=== PATIENT | female | born 1990 | race Caucasian/White ===

== ENCOUNTER 2016-07-17 15:46 | Emergency (ER) | payer SELFPAY ==
[2016-07-17 16:03] VITALS: BP 126/89
--- NOTE | 2016-07-17 16:14 | UC ---
Shoulder Pain HPI - History of Current Complaint Chief Complaint: UCUpperExtremity Stated Complaint: LEFT SHOULDER INJURY Time Seen by Provider: 07/17/16 16:05 Hx Obtained From: Patient Hx Last Menstrual Period: 06/14/16 ?: No Onset/Duration: Sudden Onset - at ~ 11 AM, Lasting Hours - 5 hours, Still Present Timing: Constant Severity Initially: Moderate Severity Currently: Moderate Location Of Pain: Is Discrete @ - cap of the left shouder, Radiates To - the shoulder blade Pain Intensity: 8 Pain Scale Used: 0-10 Numeric Character: Sharp, Burning Aggravating Factor(s): Movement, Lifting Related History: 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., 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 - Risk Factors Non-Orthopedic Risk Factor: Negative DVT Risk Factors: Negative Septic Arthritis Risk Factor: Negative - Allergies/Home Medications Allergies/Adverse Reactions: Allergies Allergy/AdvReac Type Severity Reaction Status Date / Time Hydromorphone [From Dilaudid] Allergy Intermediate Hives Verified 01/13/16 16:22 Latex Allergy Hives Verified 07/17/16 16:03 Home Medications: Home Medications Acetaminophen [Acetaminophen Extra Stren] 1,000 mg PO ONCE PRN 07/17/16 [ History Confirmed 07/17/16] PMH/Surg Hx/FS Hx/Imm Hx Endocrine History Of: Denies: Diabetes, Thyroid Disease Cardiovascular History Of: Reports: Cardiac Disorders - SVT Denies: Hypertension, Pacemaker/ICD Respiratory History Of: Denies: COPD, Asthma GI/ History Of: Reports: Gall Bladder Disease Denies: Ulcer Psychological History Of: Reports: Anxiety - WELL CONTROLLED, Depression - WELL CONTROLLED Other History Of: Negative For: Anticoagulant Therapy - Surgical History Surgical History: Yes Surgery Procedure, Year, and Place[place] [facility] [place] [facility] [place] - Family History Known Family History: Positive: Hypertension - Social History Occupation: Employed Full-time - [employer] Lives: With Family - with fiance Alcohol Use: None Substance Use Type: Cocaine, Other Substance Use Comment - Amount & 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 Smoking Status (MU): Light Every Day Tobacco Smoker Type: Cigarettes Amount Used/How Often: 3 cig/day Length of Time of Smoking/Using Tobacco: 6 MONTHS Have You Smoked in the Last Year: No When Did the Patient Quit Smoking/Using Tobacco: 2 yrs ago - Immunization History Most Recent Influenza Vaccination: 2014 Most Recent Tetanus Shot: UPDATED Most Recent Pneumonia Vaccination: NONE Review of Systems Musculoskeletal: Arthralgia All Other Systems Reviewed And Are Negative: Yes Physical Exam Triage Information Reviewed: Yes Appearance: Well-Appearing, Pain Distress - with movement, Obese Vital Signs: Initial Vital Signs Temp 98.3 F 07/17/16 15:56 Pulse 91 07/17/16 15:56 Resp 14 07/17/16 15:56 BP 126/89 07/17/16 15:56 Pulse Ox 99 07/17/16 15:56 Vital Signs Reviewed: Yes Eyes: Positive: Conjunctiva Clear Neck exam: Normal Neck: Positive: No Lymphadenopathy Respiratory: Positive: Lungs clear Cardiovascular: Positive: RRR, No Murmur Musculoskeletal: Positive: Strength Limited @ - left shoulder rotator cuff with significant pain., ROM Limited @ - left shoudler unable to raise shoulder without severe pain. Neurological: Positive: Other: - decrease sensation to pinprick for the whole left arm except on the medial aspect Psychological Exam: Normal Skin Exam: Normal Shoulder Course/Dx - Differential Dx/Diagnosis Differential Diagnosis/HQI/PQRI: Rotator Cuff Injury, Sprain, Strain Provider Diagnoses: rotator cuff strain. Neuritis Discharge - Discharge Plan Condition: Stable Disposition: HOME Prescriptions: Acetaminop/Codeine 30 MG TAB* [Tylenol/Codeine 30 MG TAB*] 1 tab PO Q6H PRN #14 tab MDD 4 PRN Reason: Pain - Moderate To Severe Gabapentin CAP(*) [Neurontin 300 CAP(*)] 300 mg PO TID #90 cap Patient Education Materials: Rotator Cuff Injury (ED), How to Use a Sling (GEN) , Gabapentin (By mouth), Acetaminophen/Codeine (By mouth) Forms: *Work Release Referrals: Jamil Hidalgo MD [Primary Care Provider] - Geni Sanabria MD [Medical Doctor] - 1 Day (for shoulder injury)
--- NOTE | 2016-07-17 16:31 | RAD ---
HISTORY: Pain, limited range of motion left shoulder COMPARISONS: July 16, 2009 VIEWS: 3, Frontal internal rotation, external rotation, and outlet views of the left shoulder FINDINGS: BONE DENSITY: Normal. BONES: There is no displaced fracture. JOINTS: There is no arthropathy. ALIGNMENT: There is no dislocation. SOFT TISSUES: Unremarkable. OTHER FINDINGS: None. IMPRESSION: NO ACUTE OSSEOUS INJURY. IF SYMPTOMS PERSIST, RECOMMEND REPEAT IMAGING.
== END 2016-07-17 17:14 | disposition home or self-care (01) ==
LOC: UCCORT 15:46
DX: S46.012A Strain of muscle(s) and tendon(s) of the rotator cuff of left shoulder, initial encounter (principal); X50.0XXA Overexertion from strenuous movement or load, initial encounter; Y92.9 Unspecified place or not applicable; M79.2 Neuralgia and neuritis, unspecified; F17.210 Nicotine dependence, cigarettes, uncomplicated; Z88.5 Allergy status to narcotic agent
CPT/HCPCS: 99213; G0463

== ENCOUNTER 2017-08-18 21:27 | Emergency (ER) | payer BC ==
--- OUTSIDE RECORDS SUMMARY | 2017-08-18 21:41 | XMS REPORT ---
:1990 External Reference #:[id number] Author Organization [facility] Address [address] [place] [address] Phone [phone] Care Team Providers Name Role Phone Jamil Hidalgo MD Care Team Information Passenger Brakeman Unavailable Jamil Hidalgo MD Primary Care Physician Unavailable Payers Type Date Identification Numbers Payment Provider Subscriber Commercial Policy Number: [id number] [facility] [employer] Akanksha Joseph PayID: [id number] [address] [address] [place] [address] Problems Date Description Provider Status Onset: 07/20/2017 Allergic rhinitis due to Ayla S. Fenstermacher, RPA-C Active animals Onset: 07/20/2017 Allergic rhinitis Ayla S. Fenstermacher, RPA-C Active Onset: 07/20/2017 Allergic rhinitis due to pollen Ayla S. Fenstermacher, RPA -C Active Onset: 07/20/2017 Uncomplicated moderate Ayla S. Fenstermacher, RPA-C Active persistent asthma Onset: 06/13/2017 Uncomplicated severe persistent Ayaan Hoang MD Active asthma Social History Type Date Description Comments Home Environment Has a window air conditioner Home Environment There is no basement Home Environment Uses a dehumidifier Home Environment There are draperies in the home Home Environment The floors are carpeted Home Environment The floors are tile Home Environment The floors are wood Home Environment Uses propane gas heating Smoke-Free Home is not smoke-free Smoke-Free Work is smoke-free Pets several cats Pets 2 dogs Smoking Patient is a current smoker, smokes every day Smoking 3-10 cigarettes daily Smoking Second Hand Smoke Exposure In The Home Allergies, Adverse Reactions, Alerts Date Description Reaction Status Severity Comments 06/13/2017 Aripiprazole active 06/13/2017 Hydromorphone active 07/20/2017 Latex active Medications Medication Date Status Form Strength Qnty SIG Indications Ordering Provider Levocetirizine 07/20 Active Tablets 5mg 30tab Take [facility] [place] Di[facility]ide /2017 s tablet Carlotta Hoang MD by mouth daily at bedtime Mometasone 07/20 Active Suspension 50mcg/Act 17uni [place] J30.1 [place] Furoate ts two Carlotta Hoang MD sprays in each nostril once daily. Breo Ellipta 06/13 Active Aerosol 200-25mcg 60uni inhale J45.50 [facility] /Inh ts one puff Carlotta Hoang MD once a day Spiriva Respimat 06/13 Active Aerosol 1.25mcg/A 4unit [address] every Carlotta Hoang MD Proair HFA 06/13 Active Aerosol 108(90Bas 8.500 2 puffs J45.50 e) gm every 4 Carlotta Hoang MD mcg/Act as needed Wellbutrin XL Active Tablets ER 300mg take one Unknown /0000 24HR tablet by mouth every morning Effexor XR Active Caps ER 75mg 1 tablet Unknown /0000 24HR by mouth three times daily please fill generic Hydroxyzine HCL Active Tablets 10mg 1 to 3 Unknown /0000 tabs every 6 hours as needed fot itching Trazodone HCL Active Tablets 50mg 1 tablet Unknown /0000 at bedtime as needed Prazosin HCL Active Capsules 2mg Unknown /0000 Biotin Maximum Active Tablets 68274mgd Unknown /0000 Dispers Vital Signs Date Vital Result Comment 07/20/2017 Height 65 inches 5'5" Weight 289.00 lb BMI (Body Mass Index) 48.1 kg/m2 Heart Rate 114 /min Body Temperature 97.5 F O2 % BldC Oximetry 97 % 06/13/2017 Height 65 inches 5'5" Weight 289.00 lb BMI (Body Mass Index) 48.1 kg/m2 Heart Rate 95 /min Respiratory Rate 22 /min Body Temperature 98.2 F O2 % BldC Oximetry 97 % Results Test Date Test Result H/L Range Note Order 06/14/2017 PFT Supplies <pending> Order 06/14/2017 Skin Test Seasonal and Environmental 59 Procedures Date CPT Code Description Status 06/14/2017 99760 Nitric Oxide Gas Determination Completed 06/14/2017 21407 Allergy Tests Percutaneous W/ Allergenic Extracts Completed 06/14/2017 77358 Allergy Tests Percutaneous W/ Allergenic Extracts Completed 06/14/2017 03600 Bronchodilation Responsiveness Spirometry Pre/Post Completed Bronchodil Adm Encounters Type Date Location Provider CPT E/M Dx Office Visit 07/20/2017 9:30a ROBERT Martinez 34408 J45.40 J30.1 J30.89 J30.81 Office Visit 06/13/2017 9:00[place] [address] J45.50 Plan of Care Future Appointment(s):01/18/2018 8:30 am - ROBERT García at [facility]/11/2018 - Ayla Dunne RPA-CJ45.40 Moderate persistent asthma, uncomplicatedComments:Asthma control has improved. Continue Breo 200/5 and Spiriva as prescribed. Continue Ventolin as needed for breakthrough coughing , wheezing and/or shortness of breath. Patient will continue to work on smoking cessation. Repeat PFT and NIOX prior to 6 month follow-up.Follow up:6 months - w /PFT and NIOX prior to qmifuV55.1 Allergic rhinitis due to pollenNew Medication: Levocetirizine Dihydrochloride 5 mgMometasone Furoate 50 mcg/ActComments: Patient with both seasonal and perennial allergic rhinitis. I have discussed environmental controls for house dust, dust mites, pets, mold spores and pollen. I will give Nasonex for daily prophylaxis of the nose. I will give Xyzal for breakthrough symptoms. I have discussed the potential risks, benefits and schedule requirements of immunotherapy and patient is going to consider this treatment option.She would like to discuss with her first and will contact the office if she decides to pursue allergy injections.Follow up:6 months.J30.89 Other allergic zylhuyznD44.81 Allergic rhinitis due to animal (cat ) (dog) hair and dander
--- OUTSIDE RECORDS SUMMARY | 2017-08-18 21:41 | XMS REPORT ---
:1990 External Reference #:[id number] Author Organization [facility] Address [address] [place] [address] Phone [phone] Care Team Providers Name Role Phone Jamil Hidalgo MD Care Team Information Frame Hand Unavailable Jamil Hidalgo MD Primary Care Physician Unavailable Payers Type Date Identification Numbers Payment Provider Subscriber Commercial Policy Number: [id number] [facility] [employer] Akanksha Joseph PayID: [id number] [address] [address] [place] [address] Problems Date Description Provider Status Onset: 06/13/2017 Uncomplicated severe persistent Ayaan Hoang [...] Form Strength Qnty SIG Indications Ordering Provider Breo Ellipta 06/13/ Active Aerosol 200-25mcg/ 60unit inhale J45.50 Ama[facility]oph[facility]ppa 2017 Inh s one puff Carlotta Hoang MD once a day Spiriva 06/13/ Active Aerosol 1.25mcg/Ac 4units 2 puffs J45.50 Ayaan Respimat 2017 t every day Carlotta Hoang MD Proair HFA 06/13/ Active Aerosol 108(90Base 8.500g 2 puffs J45.50 Ayaan 2016 ) mcg/Act m every 4 Carlotta Hoang MD as needed Wellbutrin XL / Active Tablets ER 300mg take one Unknown 0000 24HR tablet by mouth every morning Effexor XR / Active Caps ER 75mg 1 tablet Unknown 0000 24HR by mouth three times daily please fill generic Hydroxyzine / Active Tablets 10mg 1 to 3 Unknown HCL 0000 tabs every 6 hours as needed fot itching Trazodone HCL / Active Tablets 50mg 1 tablet Unknown 0000 at bedtime as needed Prazosin HCL / Active Capsules 2mg Unknown 0000 Biotin / Active Tablets 28656tgi Unknown Maximum 0000 Dispers Vital Signs Date Vital Result Comment [...] Procedures Date CPT Code Description Status 06/14/2017 20456 Nitric Oxide Gas Determination Completed 06/14/2017 74656 Allergy Tests Percutaneous W/ Allergenic Extracts Completed 06/14/2017 43916 Allergy Tests Percutaneous W/ Allergenic Extracts Completed 06/14/2017 66784 Bronchodilation Responsiveness Spirometry Pre/Post Completed Bronchodil Adm Encounters Type Date Location Provider CPT E/M Dx Office Visit 06/13/2017 9:00[place] [address] J45.50 Plan of Care 06/13/2017 - Ayaan Hoang MDJ45.50 Severe persistent asthma, uncomplicatedNew Medication:Breo Ellipta 200-25 mcg/InhSpiriva Respimat 1.25 mcg /ActProair HFA 108(90 Base) mcg/Act
[2017-08-18 21:53] VITALS: BP 127/81
[2017-08-18] MEDS ORDERED: Ketorolac INJ* 60 MG/2 ML VIAL IM ONE (21:57)
--- NOTE | 2017-08-18 22:03 | UC ---
Back Pain HPI - HPI Summary HPI Summary: Pt c/o sudden onset of right mid back pain after cough. Pt reports that she was seen and treated at [facility] on 08/15 and 08/17/17. On 08/17 visit, pt states that she had a CT scan of chest without any remarkable findings. Pt states that she was given a toradol shot at [facility] and pain in back improved. Pt is currently on prednisone as she was given prednisone from 08/15 visit.. to ER. - History of Current Complaint Chief Complaint: UCBackPain Stated Complaint: BACK PAIN Time Seen by Provider: 08/18/17 21:33 Hx Obtained From: Patient Hx Last Menstrual Period: 06/18/17 ?: No Onset/Duration: Sudden Onset, Lasting Days - 1 Timing: Constant Severity Initially: Moderate Severity Currently: Moderate Pain Intensity: 7 Back Pain: Is Discrete @ - right mid back Character: Sharp, Stiffness Aggravating Factor(s): Movement, Lifting, Bending Alleviating Factor(s): Other - toradol injection - Risk Factors AAA Risk Factors: Negative TAD Risk Factors: Negative Cauda Equina Risk Factors: Negative Epidural Abscess Risk Factors: Negative - Allergies/Home Medications Allergies/Adverse Reactions: Allergies Allergy/AdvReac Type Severity Reaction Status Date / Time aripiprazole [From Abili] Allergy Hives Verified 08/18/17 21:40 hydromorphone Allergy Hives Verified 08/18/17 21:34 latex Allergy Hives Verified 08/18/17 21:34 Home Medications: Home Medications Albuterol 2.5MG/3ML (0.083%)* [Ventolin 2.5 MG/3 ML NEB.MANISH*] 2.5 mg INH Q4H PRN 08/18/17 [History Confirmed 08/18/17] Albuterol HFA INHALER* [Ventolin HFA Inhaler*] 2 puff INH Q4H PRN 08/18/17 [ History Confirmed 08/18/17] Bupropion XL (NF) [Wellbutrin XL (NF)] 300 mg PO DAILY 08/18/17 [History Confirmed 08/18/17] Fluticasone/Vilanterol MDI(NF) [Breo Ellipta MDI 100/25(NF)] 1 puff INH DAILY [History Confirmed 08/18/17] Ibuprofen TAB* [Advil TAB*] 400 mg PO Q6H PRN 08/18/17 [History Confirmed ] Prazosin HCl 2 mg PO BEDTIME 08/18/17 [History Confirmed 08/18/17] Tiotropium CAP.INH* [Spiriva CAP.INH*] 2 cap INH DAILY 08/18/17 [History Confirmed 08/18/17] Venlafaxine EXT RELEASE CAP* [Effexor Xr CAP*] 75 mg PO DAILY 08/18/17 [History Confirmed 08/18/17] predniSONE TAB* [Deltasone TAB*] 50 mg PO DAILY 08/18/17 [History Confirmed 03/27] traZODone TAB* [Desyrel TAB*] 50 mg PO BEDTIME 08/18/17 [History Confirmed 08/18] PMH/Surg Hx/FS Hx/Imm Hx Previously Healthy: Yes Other History Of: Negative For: Anticoagulant Therapy - Surgical History Surgical History: Yes Surgery Procedure, Year, and Place: tonsillectomy 2010 [facility] [place]. right inguinal hernia repair 1995 [facility] [place]. ovarian cyst removal - Family History Known Family History: Positive: Hypertension - Social History Lives: With Family Alcohol Use: Rare Substance Use Type: Cocaine, Other Substance Use Comment - Amount & 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 Smoking Status (MU): Former Smoker Type: Cigarettes Amount Used/How Often: 3 cig/day Length of Time of Smoking/Using Tobacco: 6 MONTHS Have You Smoked in the Last Year: Yes When Did the Patient Quit Smoking/Using Tobacco: 4 DAYS AGO - Immunization History Most Recent Influenza Vaccination: 2014 Most Recent Tetanus Shot: UPDATED Most Recent Pneumonia Vaccination: NONE Review of Systems Constitutional: Negative Skin: Negative Eyes: Negative ENT: Negative Respiratory: Cough Cardiovascular: Negative Gastrointestinal: Negative Motor: Decreased ROM - right side upper back Neurovascular: Negative Musculoskeletal: Decreased ROM - back, Myalgia Neurological: Negative Psychological: Negative Is Patient Immunocompromised?: No All Other Systems Reviewed And Are Negative: Yes Physical Exam Triage Information Reviewed: Yes Appearance: Well-Appearing Vital Signs: Initial Vital Signs Temp 98.2 F 08/18/17 21:45 Pulse 93 08/18/17 21:45 Resp 20 08/18/17 21:45 BP 127/81 08/18/17 21:45 Pulse Ox 98 08/18/17 21:45 Vital Signs Reviewed: Yes Eye Exam: Normal ENT Exam: Normal Dental Exam: Normal Neck exam: Normal Respiratory Exam: Normal Cardiovascular Exam: Normal Musculoskeletal Exam: Other Musculoskeletal: Positive: Other: - tenderness, right mid bakc ~ ribs 7-10 Neurological Exam: Normal Psychological Exam: Normal Skin Exam: Normal Back Pain Course/Dx - Differential Dx/Diagnosis Differential Diagnosis/HQI/PQRI: Strain, Other - back pain Provider Diagnoses: right side back strain Discharge - Discharge Plan Condition: Stable Disposition: HOME Prescriptions: Benzonatate CAP* [Tessalon 100 MG CAP*] 100 mg PO Q8H PRN #21 cap PRN Reason: Cough Patient Education Materials: Muscle Strain (ED), Musculoskeletal Pain (ED) Referrals: Jamil Hidalgo MD [Primary Care Provider] - If Needed Additional Instructions: Please follow up with your PCP or return to clinic as needed.
== END 2017-08-18 22:13 | disposition home or self-care (01) ==
LOC: UCCORT 21:27
DX: S29.012A Strain of muscle and tendon of back wall of thorax, initial encounter (principal); X58.XXXA Exposure to other specified factors, initial encounter; Y93.9 Activity, unspecified; Y92.9 Unspecified place or not applicable
CPT/HCPCS: 96372; 99212; G0463; J1885

== ENCOUNTER 2018-12-30 14:21 | Emergency (ER) | payer BC, OTHER ==
[2018-12-30 15:36] VITALS: BP 141/85
--- NOTE | 2018-12-30 15:52 | UC ---
Knee Pain HPI - HPI Summary HPI Summary: Patient has a history of strain of her right hip which has been healing however she fell 2 times in the past 3 days the most recent was Monday night on to her left knee. She's had left knee pain since then however she is able to ambulate without difficulty. - History of Current Complaint Chief Complaint: UCLowerExtremity Stated Complaint: S/P FALL RIGHT LEG PAIN Time Seen by Provider: 12/30/18 15:47 Hx Obtained From: Patient Hx Last Menstrual Period: 11/29/18 ?: No - patient has not missed a period however she states she might be . Onset/Duration: Sudden Onset Severity Initially: Mild Severity Currently: Mild Location Of Injury: Left knee Pain Intensity: 3 Character: Dull, Aching Aggravating Factor(s): Weight Bearing, Prolonged Standing Alleviating Factor(s): Rest Associated Signs And Symptoms: Positive: Negative Able to Bear Weight: Yes - Allergies/Home Medications Allergies/Adverse Reactions: Allergies Allergy/AdvReac Type Severity Reaction Status Date / Time aripiprazole [From Abili] Allergy Hives Verified 12/30/18 15:25 hydromorphone Allergy Hives Verified 12/30/18 15:25 latex Allergy Hives Verified 12/30/18 15:25 Home Medications: Home Medications Bisoprolol TAB* [Zebeta TAB*] 2.5 mg PO BID 12/30/18 [History Confirmed 12/30/18 ] PMH/Surg Hx/FS Hx/Imm Hx Previously Healthy: Yes Other History Of: Negative For: Anticoagulant Therapy - Surgical History Surgical History: Yes Surgery Procedure, Year, and Place: tonsillectomy 2010 [facility] [place]. right inguinal hernia repair 1995 [facility] [place]. ovarian cyst removal. 2 cardiac ablations - Family History Known Family History: Positive: Hypertension - Social History Lives: With Family Alcohol Use: Weekly Substance Use Type: Cocaine, Other Substance Use Comment - Amount & 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 Smoking Status (MU): Former Smoker Type: Cigarettes Amount Used/How Often: 1/2 ppd/day Length of Time of Smoking/Using Tobacco: On and off for 10 yrs. Have You Smoked in the Last Year: Yes When Did the Patient Quit Smoking/Using Tobacco: 4 DAYS AGO - Immunization History Most Recent Influenza Vaccination: 2014 Most Recent Tetanus Shot: UPDATED Most Recent Pneumonia Vaccination: NONE Review of Systems All Other Systems Reviewed And Are Negative: Yes Skin: Negative: Bruising Motor: Positive: Negative Neurovascular: Positive: Negative Musculoskeletal: Positive: Negative, Other: - Very minimal pain to the lateral aspect of her left knee. No deformity is noted. Neurological: Positive: Negative Psychological: Positive: Negative Is Patient Immunocompromised?: No Physical Exam Triage Information Reviewed: Yes Appearance: Well-Appearing, No Pain Distress, Well-Nourished Vital Signs: Initial Vital Signs Temp 98.1 F 12/30/18 15:29 Pulse 93 12/30/18 15:29 Resp 20 12/30/18 15:29 BP 141/85 12/30/18 15:29 Pulse Ox 100 12/30/18 15:29 Vital Signs Reviewed: Yes Musculoskeletal Exam: Normal Musculoskeletal: Positive: Strength Intact, ROM Intact, Other: - Good peripheral pulses neuro sensation capillary refill, knee ligaments and patellar ligaments are intact, able to lift her leg without difficulty. No deformity, bruising, erythema or swelling is noted. Neurological Exam: Normal Neurological: Positive: Alert, Muscle Tone Normal Psychological Exam: Normal Skin Exam: Normal Knee Pain Course/Dx - Course Course Of Treatment: Knee x-ray:Report: Negative for joint effusion, fracture, or malalignment. Unremarkable soft tissue contours accounting for body habitus. IMPRESSION: #. Negative exam. - Differential Dx/Diagnosis Provider Diagnosis: Strain of left knee Discharge - Sign-Out/Discharge Documenting (check all that apply): Patient Departure All imaging exams completed and their final reports reviewed: Yes - Discharge Plan Condition: Fair Disposition: HOME Patient Education Materials: Knee Pain (ED) Referrals: No Primary Care Phys,NOPCP [Primary Care Provider] - Des Cid MD [Medical Doctor] - Additional Instructions: Apply heat to the sore area, take Motrin every 8 hours for pain. Follow-up with the primary care provider or orthopedist in 3 or 4 days if continued concerns. - Billing Disposition and Condition Condition: FAIR Disposition: Home
== END 2018-12-30 17:26 | disposition home or self-care (01) ==
LOC: UCCORT 14:21
DX: S83.92XA Sprain of unspecified site of left knee, initial encounter (principal); W19.XXXA Unspecified fall, initial encounter; Y92.9 Unspecified place or not applicable; Z87.891 Personal history of nicotine dependence
CPT/HCPCS: 84702; 99211; G0463

== ENCOUNTER 2019-02-09 19:25 | Emergency (ER) | payer OTHER ==
--- NOTE | 2019-02-09 19:48 | UC ---
Lower Extremity/Ankle HPI - HPI Summary HPI Summary: 28 yo female presents with LEFT ankle injury. She tells me that earlier today she was at home and inverted her left ankle. Since that time has had pain and swelling. She is ambulatory without assistance, but does have a mild limp. She took tylenol and iced the area with little relief. Denies numbness or tingling. She states that she has sprained this ankle numerous times in the past. - History of Current Complaint Stated Complaint: LEFT ANKLE INJURY Time Seen by Provider: 02/09/19 19:47 Hx Obtained From: Patient Hx Last Menstrual Period: 11/29/18 Onset/Duration: Sudden Onset Severity Initially: Moderate Severity Currently: Moderate Pain Intensity: 5 Pain Scale Used: 0-10 Numeric Aggravating Factor(s): Standing, Ambulation Alleviating Factor(s): Rest, Elevation Able to Bear Weight: Yes - Allergies/Home Medications Allergies/Adverse Reactions: Allergies Allergy/AdvReac Type Severity Reaction Status Date / Time aripiprazole [From Abilify] Allergy Hives Verified 12/30/18 15:25 hydromorphone Allergy Hives Verified 12/30/18 15:25 latex Allergy Hives Verified 12/30/18 15:25 metoprolol Allergy Hives Verified 02/09/19 19:51 PMH/Surg Hx/FS Hx/Imm Hx Respiratory History: Asthma Psychological History: Anxiety, Depression Other History Of: Negative For: Anticoagulant Therapy - Surgical History Surgical History: Yes Surgery Procedure, Year, and Place[place] [facility] [place] [facility] [place] ovarian cyst removal. 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 Smoking Status (MU): Former Smoker Type: Cigarettes Amount Used/How Often: 1/2 ppd/day Length of Time of Smoking/Using Tobacco: On and off for 10 yrs. Have You Smoked in the Last Year: Yes When Did the Patient Quit Smoking/Using Tobacco: 4 DAYS AGO - Immunization History Most Recent Influenza Vaccination: 2014 Most Recent Tetanus Shot: UPDATED Most Recent Pneumonia Vaccination: NONE Review of Systems All Other Systems Reviewed And Are Negative: Yes Constitutional: Positive: Negative Skin: Positive: Negative Respiratory: Positive: Negative Cardiovascular: Positive: Negative Musculoskeletal: Positive: Other: - Left ankle injury Neurological: Positive: Negative Psychological: Positive: Negative Physical Exam - Summary Physical Exam Summary: GENERAL: NAD. WDWN. No pain distress. SKIN: No rashes, sores, lesions, or open wounds. CHEST: No accessory muscle use. Breathing comfortably and in no distress. CV: Pulses intact PT and DP. Cap refill <2seconds MSK: Left ankle: Mild edema lateral malleolus with TTP here. TTP over ATFL. FROM , pain with inversion. Strength 5/5. Negative talar tilt. No increased laxity. NEURO: Alert. Sensations intact and symmetric B/L LEs PSYCH: Age appropriate behavior. Triage Information Reviewed: Yes Vital Signs: Vital Signs: Temp Pulse Resp BP Pulse Ox 98.9 F 112 18 138/70 99 02/09/19 19:44 02/09/19 19:44 02/09/19 19:44 02/09/19 19:44 02/09/19 19:44 Vital Signs Reviewed: Yes Lower Extremity Course/Dx - Course Course Of Treatment: XR ankle: wet read negative for fx. Suspect ankle sprain. Pt was placed in a CAM boot and provided with crutches for comfort. Advised to RICE and continue tylenol. F/u with Orthopedics if symptoms do not improve within 7 days. - Differential Dx/Diagnosis Provider Diagnosis: Left ankle sprain Discharge - Sign-Out/Discharge Documenting (check all that apply): Patient Departure All imaging exams completed and their final reports reviewed: No - Discharge Plan Condition: Stable Disposition: HOME Patient Education Materials: Ankle Sprain (ED) Referrals: No Primary Care Phys,NOPCP [Primary Care Provider] - Riaz Hernandez MD [Medical Doctor] - If Needed Additional Instructions: If you develop a fever, shortness of breath, chest pain, new or worsening symptoms - please call your PCP or go to the ED immediately. Your blood pressure was slightly elevated at todays visit. Please see your primary provider within 4 weeks for recheck and re-evaluation. 1) Your ankle X-ray appears normal tonight, but the radiologist will read this in the morning and we will call you with any changes. 2) Rest, Ice, and elevate your ankle to reduce pain and swelling 3) Use the crutches and walking boot as needed for comfort 4) If your symptoms do not improve within 7 days, please call Orthopedics at the number below to schedule an appointment for a recheck - Billing Disposition and Condition Condition: STABLE Disposition: Home
[2019-02-09 19:51] VITALS: BP 138/70
--- NOTE | 2019-02-10 10:01 | UC ---
- Progress Note Progress Note: Radiologist x-ray reading reviewed: FINDINGS: The soft tissues are grossly unremarkable. The bone mineralization is within normal limits. No acute fracture is identified. There is a small plantar calcaneal enthesophyte. The ankle mortise is congruent. Anatomic alignment is maintained. IMPRESSION: 1. No fracture or traumatic malalignment. 2. Small plantar calcaneal enthesophyte. No change in plan of care. Course/Dx - Diagnoses Provider Diagnoses: Left ankle sprain Discharge - Sign-Out/Discharge Documenting (check all that apply): Post-Discharge Follow Up All imaging exams completed and their final reports reviewed: Yes - Discharge Plan Condition: Stable Disposition: HOME Patient Education Materials: Ankle Sprain (ED) Referrals: Riaz Hernandez MD [Medical Doctor] - If Needed No Primary Care Phys,NOPCP [Primary Care Provider] - Additional Instructions: If you develop a fever, shortness of breath, chest pain, new or worsening symptoms - please call your PCP or go to the ED immediately. Your blood pressure was slightly elevated at todays visit. Please see your primary provider within 4 weeks for recheck and re-evaluation. 1) Your ankle X-ray appears normal tonight, but the radiologist will read this in the morning and we will call you with any changes. 2) Rest, Ice, and elevate your ankle to reduce pain and swelling 3) Use the crutches and walking boot as needed for comfort 4) If your symptoms do not improve within 7 days, please call Orthopedics at the number below to schedule an appointment for a recheck - Billing Disposition and Condition Condition: STABLE Disposition: Home
== END 2019-02-09 20:20 | disposition home or self-care (01) ==
LOC: UCCORT 19:25
DX: S93.402A Sprain of unspecified ligament of left ankle, initial encounter (principal); X50.0XXA Overexertion from strenuous movement or load, initial encounter; Y93.9 Activity, unspecified; Y92.009 Unspecified place in unspecified non-institutional (private) residence as the place of occurrence of the external cause; M77.9 Enthesopathy, unspecified; M77.32 Calcaneal spur, left foot; Z87.891 Personal history of nicotine dependence
CPT/HCPCS: 99213; G0463

== ENCOUNTER → 2019-04-25 | Day surgery (SDC) | payer BC, OTHER ==
[~2019-04-25] MED LIST: Acetaminophen TAB* 325 MG ONE; Acetaminophen TAB* 325 MG PO ONE; Acetaminophen TAB* 325 MG PO PRN; Buffered Lidocaine 1% SYRIN* 1 ML/SYRINGE INTRADERM ONE; Bupivacaine 0.25% SDV PF* 10 ML VIAL INJ ONE; Bupivacaine 0.25% W/EPI* 10 ML SDV ONE; Dexamethasone IV* 4 MG/ML 1 ML (4 MG) ONE; Dexmedetomidine* 200 MCG/2 ML 2 ML VIAL ONE; DiMENhydriNATE IV* 50 MG/ML VIAL IV PUSH PRN; Famotidine IV* 10 MG/ML 2 ML (20 mg) IV ONE; Famotidine IV* 10 MG/ML 2 ML (20 mg) ONE; Gabapentin CAP(*) 300 MG ONE; Gabapentin CAP(*) 300 MG PO ONE; Ketorolac INJ* 30 MG/ML 1 ML VIAL ONE; Lactated Ringers 1000 ML Bag* 1,000 ML IV SCH; Levalbuterol 0.63MG/3ML NEB* UNIT OF USE INH PRN; Lidocaine 2% PF * 5 ML VIAL ONE; Midazolam* 1 MG/ML 5 ML VIAL (5 MG) ONE; Naloxone* 0.4 MG/ML 1 ML VIAL IV PRN; Ondansetron INJ* 2 MG/ML VIAL ONE; PROCHLORPERAZINE INJ 5 MG/ML 2 ML VIAL IV PRN; Propofol* 10 MG/ML 20 ML BTL ONE; ceFAZolin 1 GM ADVAN(*) 1 GM ADDV.VIAL IVPB ONE; ceFAZolin 2 GM PREMIX in ORs 2 GM/50 ML BAG ONE; diPHENhydraMINE IV* 50 MG/ML 1 ml VIAL (BENADRYL) IV PRN; fentaNYL* 50 MCG/ML 2 ML VIAL (100 MCG VIAL) ONE
--- NOTE | 2019-04-25 09:42 | OP ---
Operative Report - Blank - Operative Report Date of Operation: 04/25/19 Note: PATIENT: Akanksha Joseph DATE OF : 1990 DATE OF SURGERY: 04/25/2019 SURGEON: Riaz Hernandez MD AIRPORT REFUELING HANDLER: SHELLI Anderson, whos assistance was necessary for positioning, retraction, help with instrumentation, and closure. ANESTHESIOLOGIST: Dr. Dixon PREOPERATIVE DIAGNOSIS: Left ankle peroneal tenosynovitis, peroneus brevis tear. POSTOPERATIVE DIAGNOSIS: Left ankle peroneal tenosynovitis, peroneus brevis tear and peroneal instability. OPERATION: 1. Left peroneus brevis tendon repair. 2. Left synovectomy of peroneal tendon sheath. 3. Left peroneal tendon stabilization procedure with fibular groove deepening osteotomy. ANESTHESIA: General IMPLANTS: Arthrex fibertak suture anchor x2 TOURNIQUET TIME: Less than 1 hour with a well-padded calf tourniquet at 250mmHg SPECIMENS: none ESTIMATED BLOOD LOSS: minimal COMPLICATIONS: none STATUS: Stable from the operating room to the recovery room and then home. INDICATIONS FOR PROCEDURE: Akanksha has had persistent lateral ankle pain and swelling after an injury. Both operative and non operative treatment alternatives were reviewed. Further, the nature and risks of surgery were reviewed in careful detail, in the office as well as the pre-operative holding area. Our discussions regarding the risks of surgery included, but were not limited to, infection, wound problems, nerve injury, neuroma, RSD, persistent symptoms, blood clot, failure of the surgery, recurrent problems and even the remote chance of catastrophic complication. DESCRIPTION OF PROCEDURE: The patient was seen in the preoperative holding unit and informed written consent was obtained. The appropriate extremity was marked. The patient was then brought to the operating room and carefully positioned on the operating room table. Anesthesia was induced. All bony prominences were padded with great care. A chlorhexidine based pre-scrub was performed followed by a chloraprep prep and drape in standard sterile fashion. A surgical safety pause was then conducted in which we confirmed the appropriate patient, extremity, planned procedure, availability of equipment, indication and administration of prophylactic antibiotics, and DVT prophylaxis in the form of a compression boot on the non-surgical extremity. I began with placement of a sterile calf tourniquet 3 finger-breadths distal to the fibular neck. An Esmarch exsanguination of the limb was then performed and the tourniquet inflated. I utilized an incision overlying the peroneal tendons laterally. I carried the dissection down through the soft tissue to the level of the periosteum and superior peroneal retinaculum (SPR) with care taken to protect the sural nerve, which was not visualized during the procedure. I carefully incised the SPR off of the posterior fibula to expose the peroneal tendons. Dissection of the tendons was carried distally. There was a large amount of inflamed tenosynovium within the tendon sheath. An extensive synovectomy was performed. Additionally, there was a low-lying peroneus brevis muscle belly which was debrided and excised. The tendons were explored at this time for any tears. There was a longitudinal split tear of the peroneus brevis at the level of the retrofibular groove. I removed a small slip of loose frayed tendon in this area, leaving approximately 95% of the tendon intact. I then utilized a 3-0 Ethibond suture to repair the tendon tear. At this point, I carefully inspected the peroneal groove at the posterior aspect of the fibula. This was an abnormally shallow groove and I therefore elected to perform a groove deepening osteotomy procedure. I utilized a small sagittal saw to create a longitudinal osteotomy in the fibula at the margin of the insertion of the SPR. I then utilized a bone tamp and a mallet to impact this area, deepening the groove. I took care to ensure that there were no sharp bony prominences in this area. At this point I carefully planned out the repair of the superior peroneal retinaculum. I then reduced the tendons and they sat nicely in the deepened retro-fibular groove. The wound was copiously irrigated. I repaired the SPR utilizing two Arthrex fibertak suture anchors and then #1 Vicryl suture.. I utilized multiple sutures for this repair, appropriately tensioning the SPR. I was able to pass a Callahan under the repaired SPR without difficulty after the repair. We then irrigated the wound copiously again. The wound was closed in a layered fashion utilizing 3-0 Monocryl and 3-0 nylon. A sterile dressing was then applied and the ankle was splinted in a neutral position. All needle and sponge counts were correct at the end of the case. The patient was awakened from anesthesia and transferred to the recovery room in stable condition. There were no complications. ATTESTATION: I attest I was present and scrubbed and performed the critical portions of the procedure myself. POST-OPERATIVE PLAN: The patient will remain [id number] for an anticipated duration of 6 weeks. Follow up will be in 2 weeks for likely suture removal and transition into a short leg cast. We will use Xarelto for DVT prophylaxis.
[2019-04-25] MEDS: fentaNYL* 50 MCG/ML 2 ML VIAL (100 MCG VIAL) IV PRN ×2 (10:14→10:27)
[2019-04-25 10:32] VITALS: BP 152/82
== END | disposition home or self-care (01) ==
LOC: OR 05:32
PROVIDERS: ATTEND Orthopaedic Surgery
DX: S86.312A Strain of muscle(s) and tendon(s) of peroneal muscle group at lower leg level, left leg, initial encounter (principal); M65.872 Other synovitis and tenosynovitis, left ankle and foot; M67.874 Other specified disorders of tendon, left ankle and foot; F17.210 Nicotine dependence, cigarettes, uncomplicated; J45.909 Unspecified asthma, uncomplicated; Z68.42 Body mass index [BMI] 45.0-49.9, adult; F31.9 Bipolar disorder, unspecified; F41.8 Other specified anxiety disorders; I47.1 Supraventricular tachycardia; X58.XXXA Exposure to other specified factors, initial encounter; Y92.9 Unspecified place or not applicable
CPT/HCPCS: 81025; A9270-GY; C1713; J0690; J1100; J1885; J2250; J2405; J2704; J3010; J3490

== ENCOUNTER 2019-06-11 08:32 | Emergency (ER) | payer BC ==
[2019-06-11 09:25] VITALS: BP 145/90
--- NOTE | 2019-06-11 09:52 | UC ---
Head Injury HPI - HPI Summary HPI Summary: head injury x 3 hrs ago slipped at her bathroom and fell on her head no LOC, + headaches, nausea , no vomiting, + lightheaded photophobia, no memory loss, + fatigue - History Of Current Complaint Chief Complaint: UCHeadInjury Stated Complaint: S/P FALL HEAD SHOULDER INJURY Time Seen by Provider: 06/11/19 09:37 Hx Obtained From: Patient Hx Last Menstrual Period: 06/10/19 ?: No Onset/Duration: Sudden Onset, Lasting Hours - 3, Still Present Severity Currently: Moderate Severity Initially: Moderate Pain Intensity: 6 Character: Dull Aggravating Factor(s): Other - walking, movements Alleviating Factor(s): Other - rest Associated Signs And Symptoms: Positive: Negative, Nausea. Negative: LOC (Time In Secs./Mins/Hrs), LOC Duration Unknown, Confusion, Memory Loss, Seizure, Epistaxis, Dental Malocclusion, Neck Pain, Vomiting - Allergies/Home Medications Allergies/Adverse Reactions: Allergies Allergy/AdvReac Type Severity Reaction Status Date / Time aripiprazole [From Abilify] Allergy Severe Hives Verified 06/11/19 09:25 hydromorphone Allergy Severe Hives Verified 06/11/19 09:25 latex Allergy Severe Hives Verified 06/11/19 09:25 metoprolol Allergy Severe Hives Verified 06/11/19 09:25 Iodinated Contrast Media AdvReac Severe Vomiting Verified 06/11/19 09:25 PMH/Surg Hx/FS Hx/Imm Hx Respiratory History: Asthma Other History Of: Negative For: Anticoagulant Therapy - Surgical History Surgical History: Yes Surgery Procedure, Year, and Place[place] [facility] [place] [facility] [place]. 2 cardiac ablations- 2016, -2017. 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 Smoking Status (MU): Former Smoker Type: Cigarettes Amount Used/How Often: 1/2 ppd/day Length of Time of Smoking/Using Tobacco: On and off for 10 yrs. Have You Smoked in the Last Year: Yes When Did the Patient Quit Smoking/Using Tobacco: 12/2018 - Immunization History Most Recent Influenza Vaccination: 2014 Most Recent Tetanus Shot: UPDATED Most Recent Pneumonia Vaccination: NONE Review of Systems All Other Systems Reviewed And Are Negative: Yes Constitutional: Positive: Negative Skin: Positive: Negative Eyes: Positive: Negative ENT: Positive: Negative Respiratory: Positive: Negative Motor: Positive: Negative Neurovascular: Positive: Negative Musculoskeletal: Positive: Other: - left shoulder pain Neurological: Positive: Headache, Weakness. Negative: Numbness Is Patient Immunocompromised?: No Physical Exam Triage Information Reviewed: Yes Appearance: Well-Appearing, No Pain Distress, Well-Nourished Vital Signs: Initial Vital Signs Temp 98.5 F 06/11/19 09:22 Pulse 89 06/11/19 09:22 Resp 20 06/11/19 09:22 BP 145/90 06/11/19 09:22 Pulse Ox 100 06/11/19 09:22 Vital Signs Reviewed: Yes Eye Exam: Normal Eyes: Positive: Conjunctiva Clear ENT: Positive: Normal ENT inspection, Hearing grossly normal, Pharynx normal Dental Exam: Normal Neck exam: Normal Neck: Positive: Supple, Nontender, No Lymphadenopathy Respiratory: Positive: Chest non-tender, Lungs clear, Normal breath sounds Cardiovascular: Positive: RRR, No Murmur, Pulses Normal Abdominal Exam: Normal Abdomen Description: Positive: Nontender, Soft Musculoskeletal: Positive: Strength Intact, Other: - mild left shoulder pain, no tenderness, good ROM Neurological Exam: Normal Skin Exam: Normal UC Physical Exam Vital Signs On Initial Exam: Initial Vitals Temp Pulse Resp BP Pulse Ox 98.5 F 89 20 145/90 100 06/11/19 09:22 06/11/19 09:22 06/11/19 09:22 06/11/19 09:22 06/11/19 09:22 - Neurological Exam Neurological: Normal, Sensory/Motor Intact, CN Intact II-III, Normal Gait, Speech Normal Head Injury Course/Dx - Differential Dx/Diagnosis Provider Diagnosis: Concussion Discharge ED - Sign-Out/Discharge Documenting (check all that apply): Patient Departure All imaging exams completed and their final reports reviewed: No Studies - Discharge Plan Condition: Stable Disposition: HOME Patient Education Materials: Concussion (ED) Forms: *Work Release Referrals: No Primary Care Phys,NOPCP [Primary Care Provider] - 7 Days - Billing Disposition and Condition Condition: STABLE Disposition: Home
--- OUTSIDE RECORDS SUMMARY | 2019-06-11 16:40 | XMS REPORT | Continuity of Care Document ---
:1990 External Reference #:[id number] Author Name Riaz Hernandez MD (transmitted by agent of provider Bhavani Manriquez) Address [address] [place] [address] Care Team Providers Name Role Phone Patient's Choice Care Team Information Janitorial Services Supervisor Unavailable Problems Active Problems Provider Date Sprain of distal tibiofibular ligament Riaz Hernandez MD Onset: 02/19/2019 Peroneal tendinitis, left leg Riaz Hernandez MD Onset: 02/19/2019 Strain of peroneal tendon Riaz Hernandez MD Onset: 04/15/2019 Social History Type Date Description Comments Sex Unknown Tobacco Use Start: Unknown Light tobacco smoker (10 or fewer cigarettes/day) Smoking Status Reviewed: 04/15/19 Light tobacco smoker (10 or fewer cigarettes/day) ETOH Use Denies alcohol use Tobacco Use Start: Unknown Light tobacco smoker (10 or fewer cigarettes/day) Recreational Drug Use Denies Drug Use but has history of abuse-clean for 3 years Exercise Type/Frequency Does not exercise Allergies, Adverse Reactions, Alerts Active Allergies Reaction Severity Comments Date Dilaudid Hives 07/21/2016 Latex Hives 07/21/2016 Medications Active Medications SIG Qnty Indications Ordering Provider Date Wellbutrin XL 1 by mouth every Unknown 300mg Tablets day ER 24HR Medications Administered in Office Medication SIG Qnty Indications Ordering Provider Date Depomedrol 40MG Daniele Hoyos MD 07/21/2016 Injection Immunizations Description No Information Available Vital Signs Date Vital Result Comment 04/15/2019 8:01am Height 65 inches 5'5" Weight 293.00 lb Heart Rate 59 /min Body Temperature 99.3 F Pain Level 8 O2 % BldC Oximetry 86 % BMI (Body Mass Index) 48.8 kg/m2 04/05/2019 2:59pm Height 65 inches 5'5" Weight 293.00 lb BP Systolic 136 mmHg BP Diastolic 88 mmHg Body Temperature 98.7 F BMI (Body Mass Index) 48.8 kg/m2 Results Description No Information Available Procedures Description No Information Available Medical Devices Description No Information Available Encounters Type Date Location Provider Dx Diagnosis [facility] musc/tend 8:15a at [facility] peroneal grp at low leg lev, left leg, init Office Visit 04/05/2019 [facility] Riaz Hernandez, M25.572 Pain in left 3:00p at [facility] ankle and joints of left foot M25.472 Effusion, left ankle S93.432A Sprain of tibiofibular ligament of left ankle, init encntr M76.72 Peroneal tendinitis, left leg Office Visit 03/08/2019 [facility] Hernandez, S93.432A Sprain of 10:45a [facility] at [facility] [place] ligament of left ankle, init encntr Office Visit 02/19/2019 [place] Riaz Hernandez, S93.432A Sprain of 2:45p [facility] at [facility] [place] ligament of left ankle, init encntr M76.72 Peroneal tendinitis, left leg Assessments Date Code Description Provider 04/15/2019 S86.312A Strain of muscle(s) and tendon(s) of abielal Riaz Hernandez MD muscle group at lower leg level, left leg, initial encounter 04/05/2019 M25.572 Pain in left ankle and joints of left foot Riaz Hernandez MD 04/05/2019 M25.472 Effusion, left ankle Riaz Hernandez MD 04/05/2019 S93.432A Sprain of tibiofibular ligament of left ankle, Raiz Hernandez MD initial encounter 04/05/2019 M76.72 Peroneal tendinitis, left leg Riaz Hernandez MD 03/08/2019 S93.432A Sprain of tibiofibular ligament of left ankle, Riaz Hernandez MD initial encounter 02/19/2019 S93.432A Sprain of tibiofibular ligament of left ankle, Riaz Hernandez MD initial encounter 02/19/2019 M76.72 Peroneal tendinitis, left leg Riaz Hernandez MD Plan of Treatment Future Appointment(s):04/25/2019 10:00 am - ROBERT Anderson at [place] at [id number]/25/2019 10:00 am - Riaz Hernandez MD at [facility] at [id number]/15/2019 - Riaz Hernandez [id number] Strain of muscle(s) and tendon(s) of peroneal muscle group at lower leg level, left leg, initial encounterFollow up:Follow Up: 13-15 days postop Functional Status Description No Information Available Mental Status Description No Information Available Referrals Description No Information Available
--- OUTSIDE RECORDS SUMMARY | 2019-06-11 16:40 | XMS REPORT | Continuity of Care Document ---
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] Medications SIG Qnty Indications Ordering Provider Date Knee Scooter use for S86.312A Riaz Hernandez MD 04/30/2019 non-weightbearing ht: 65" wt: 293 Tramadol HCL 1 tablets every 18tabs Riaz Hernandez MD 04/26/2019 50mg 4-6 hours as Tablets needed Oxycodone HCL 1 tabs by mouth 10tabs Riaz Hernandez MD 04/25/2019 5mg every 6 hours as Tablets needed Xarelto take one tab per 30tabs Riaz Hernandez MD 04/25/2019 10mg Tablets day Wellbutrin XL 1 by mouth every Unknown 300mg day Tablets ER 24HR Medications Administered in Office Medication SIG Qnty Indications Ordering Provider Date Depomedrol 40MG Daniele Hoyos MD 07/21/2016 Injection Immunizations Description No Information Available Vital Signs Date Vital Result Comment 04/30/2019 1:51pm Height 65 inches 5'5" Weight 293.00 lb Heart Rate 78 /min BP Systolic 132 mmHg BP Diastolic 86 mmHg Respiratory Rate 18 /min Body Temperature 99.3 F Pain Level 8 BMI (Body Mass Index) 48.8 kg/m2 04/15/2019 8:01am Height 65 inches 5'5" Weight 293.00 lb Heart Rate 59 /min Body Temperature 99.3 F Pain Level 8 O2 % BldC Oximetry 86 % BMI (Body Mass Index) 48.8 kg/m2 Results Description No Information Available Procedures Date Code Description Status 04/30/2019 56431 Short Leg Cast Completed 04/25/2019 51223 Synovectomy Flexor Tendon Foot Completed 04/25/2019 55505 Synovectomy Flexor Tendon Foot Completed 04/25/2019 59192 Repair Dislocating Peroneal Tendon W/Fibular Osteotomy Completed 04/25/2019 50314 Repair Dislocating Peroneal Tendon W/Fibular Osteotomy Completed 04/25/2019 79625 Repair Flexor Tendon Leg Primary W/O Graft Completed 04/25/2019 47864 Repair Flexor Tendon Leg Primary W/O Graft Completed Medical Devices Description No Information Available Encounters Type Date Location Provider Dx Diagnosis Office Visit 04/15/2019 [facility] Riaz Hernandez, S86.312A Strain musc/tend 8:15a at [facility] peroneal grp at low leg lev, left leg, init [facility] M25.572 Pain in left 3:00p at [facility] ankle and joints of left foot M25.472 Effusion, left ankle S93.432A Sprain of tibiofibular ligament of left ankle, init encntr M76.72 Peroneal tendinitis, left leg Office Visit 03/08/2019 [place] Riaz Hernandez, S93.432A Sprain of 10:45a [facility] at tib[facility]fibular [place] ligament of left ankle, init encntr Office Visit 02/19/2019 [place] Riaz Hernandez, S93.432A Sprain of 2:45p [facility] at [facility] [place] ligament of left ankle, init encntr M76.72 Peroneal tendinitis, left leg Assessments Date Code Description Provider 04/30/2019 S86.312A Strain of muscle(s) and tendon(s) of keri Hernandez MD muscle group at lower leg level, left leg, initial encounter 04/30/2019 M65.872 Other synovitis and tenosynovitis, left ankle Riaz Hernandez MD and foot 04/30/2019 M25.372 Other instability, left ankle Riaz Hernandez MD 04/25/2019 S86.312A Strain of muscle(s) and tendon(s) of peroneal Bhavani Manriquez RPA-Josefa muscle group at lower leg level, left leg, initial encounter 04/25/2019 S86.312A Strain of muscle(s) and tendon(s) of keri Hernandez MD muscle group at lower leg level, left leg, initial encounter 04/25/2019 M65.872 Other synovitis and tenosynovitis, left ankle Bhavani Manriquez RPA-C and foot 04/25/2019 M65.872 Other synovitis and tenosynovitis, left ankle Riaz Hernandez MD and foot 04/25/2019 M25.372 Other instability, left ankle Bhavani Manriquez RPA-C 04/25/2019 M25.372 Other instability, left ankle Riaz Hernandez MD 04/15/2019 S86.312A Strain of muscle(s) and tendon(s) of keri Hernandez MD muscle group at lower leg level, left leg, initial encounter 04/05/2019 M25.572 Pain in left ankle and joints of left foot Riaz Hernandez MD 04/05/2019 M25.472 Effusion, left ankle Riaz Hernandez MD 04/05/2019 S93.432A Sprain of tibiofibular ligament of left Riaz Hernandez MD ankle, initial encounter 04/05/2019 M76.72 Peroneal tendinitis, left leg Riaz Hernandez MD 03/08/2019 S93.432A Sprain of tibiofibular ligament of left Riaz Hernandez MD ankle, initial encounter 02/19/2019 S93.432A Sprain of tibiofibular ligament of left Riaz Hernandez MD ankle, initial encounter 02/19/2019 M76.72 Peroneal tendinitis, left leg Riaz Hernandez MD Plan of Treatment Future Appointment(s):05/10/2019 8:30 am - Riaz Hernandez MD at [facility] at Dsmivn0204/30/2019 - Riaz Hernandez, MDS86.312A Strain of muscle(s) and tendon(s) of peroneal muscle group at lower leg level, left leg, initial encounterNew Medication:Knee Scooter - use for non-weightbearing ht: 65" wt: 293Follow up:Follow Up: as scheduled for postop datdzS20.872 Other synovitis and tenosynovitis, left ankle and footM25.372 Other instability, left ankle Functional Status Description No Information Available Mental Status Description No Information Available Referrals Description No Information Available
--- OUTSIDE RECORDS SUMMARY | 2019-06-11 16:40 | XMS REPORT | Continuity of Care Document ---
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 Onset: 05/17/2019 Joint derangement Riaz Hernandez MD Onset: 04/25/2019 Other synovitis and tenosynovitis, left ankle Riaz Hernandez MD Onset: 2018 and foot Social History Type Date Description Comments Sex Unknown Tobacco Use Start: Unknown Light tobacco smoker (10 or fewer cigarettes/day) Smoking Status Reviewed: 05/20/19 Light tobacco smoker (10 or fewer cigarettes/day) [...] Available Vital Signs Date Vital Result Comment 05/20/2019 3:12pm Height 65 inches 5'5" Weight 293.00 lb Heart Rate 78 /min BP Systolic 120 mmHg BP Diastolic 82 mmHg Respiratory Rate 17 /min Body Temperature 100.4 F Pain Level 8 BMI (Body Mass Index) 48.8 kg/m2 05/10/2019 8:06am Height 65 inches 5'5" Weight 293.00 lb Heart Rate 88 /min BP Systolic 142 mmHg BP Diastolic 86 mmHg Respiratory Rate 18 /min Body Temperature 99.6 F Pain Level 9 BMI (Body Mass Index) 48.8 kg/m2 Results Description No Information Available Procedures Date Code Description Status 05/10/2019 32039 Short Leg Cast Completed 04/30/2019 56776 Short Leg Cast Completed 04/25/2019 84899 Synovectomy Flexor Tendon Foot Completed 04/25/2019 65512 Synovectomy Flexor Tendon Foot Completed 04/25/2019 24762 Repair Dislocating Peroneal Tendon W/Fibular Osteotomy Completed 04/25/2019 90686 Repair Dislocating Peroneal Tendon W/Fibular Osteotomy Completed 04/25/2019 51713 Repair Flexor Tendon Leg Primary W/O Graft Completed 04/25/2019 34787 Repair Flexor Tendon Leg Primary W/O Graft Completed Medical Devices Description No Information Available Encounters Type Date Location Provider Dx Diagnosis Office Visit 04/15/2019 [facility] Riaz Hernandez, S86.312A Strain musc/tend 8:15a at [facility] peroneal grp at low leg lev, left leg, init [facility] Visit [facility] M25.572 Pain in left 3:00p at [facility] ankle and joints of left foot M25.472 Effusion, left ankle S93.432A Sprain of tibiofibular ligament of left ankle, init encntr M76.72 Peroneal tendinitis, left leg Office Visit 03/08/2019 [facility], S93.432A Sprain of 10:45a [facility] at tibiofibular [place] ligament of left ankle, init encntr Office Visit 02/19/2019 [facility] Hernandez, S93.432A Sprain of 2:45p [facility] at [facility] [place] ligament of left ankle, init encntr M76.72 Peroneal tendinitis, left leg Assessments Date Code Description Provider 05/17/2019 Z47.89 Encounter for other orthopedic aftercare Geni Sanabria M.D. 05/17/2019 M25.572 Pain in left ankle and joints of left foot Geni Sanabria M.D. 05/17/2019 R60.0 Localized edema Geni Sanabria M.D. 05/10/2019 S86.312A Strain of muscle(s) and tendon(s) of peroneal Riaz Hernandez MD muscle group at lower leg level, left leg, initial encounter 05/10/2019 M65.872 Other synovitis and tenosynovitis, left ankle Riaz Hernandez MD and foot 05/10/2019 M25.372 Other instability, left ankle Riaz Hernandez MD 04/30/2019 S86.312A Strain of muscle(s) and tendon(s) of keri Hernandez MD muscle group at lower leg level, left leg, initial encounter 04/30/2019 M65.872 Other synovitis and tenosynovitis, left ankle Riaz Hernandez MD and foot 04/30/2019 M25.372 Other instability, left ankle Riaz Hernandez MD 04/25/2019 S86.312A Strain of muscle(s) and tendon(s) of peroneal ROBERT Anderson muscle group at lower leg level, left leg, initial encounter 04/25/2019 S86.312A Strain of muscle(s) and tendon(s) of keri Hernandez MD muscle group at lower leg level, left leg, initial encounter 04/25/2019 M65.872 Other synovitis and tenosynovitis, left ankle ROBERT Anderson and foot 04/25/2019 M65.872 Other synovitis and tenosynovitis, left ankle Riaz Hernandez MD and foot 04/25/2019 M25.372 Other instability, left ankle Bhavani ROBERT Manriquez 04/25/2019 M25.372 Other instability, left ankle Riaz Hernandez MD 04/15/2019 S86.312A Strain of muscle(s) and tendon(s) of peroneal Riaz Hernandez MD muscle group at lower [...] Riaz Hernandez MD Plan of Treatment Future Appointment(s):06/14/2019 8:00 am - Riaz Hernandez MD at [facility] Functional Status Description No Information Available Mental Status Description No Information Available Referrals Description No Information Available
--- OUTSIDE RECORDS SUMMARY | 2019-06-11 16:40 | XMS REPORT | Continuity of Care Document ---
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 Problems Active Problems Provider Date Sprain [...] (10 or fewer cigarettes/day) Smoking Status Reviewed: 05/10/19 Light tobacco smoker (10 or fewer cigarettes/day) [...] Available Vital Signs Date Vital Result Comment 05/10/2019 8:06am Height 65 inches 5'5" Weight 293.00 lb Heart Rate 88 /min BP Systolic 142 mmHg BP Diastolic 86 mmHg Respiratory Rate 18 /min Body Temperature 99.6 F Pain Level 9 BMI (Body Mass Index) 48.8 kg/m2 04/30/2019 1:51pm Height 65 inches 5'5" Weight 293.00 lb Heart Rate 78 /min BP Systolic 132 mmHg BP Diastolic 86 mmHg Respiratory Rate 18 /min Body Temperature 99.3 F Pain Level 8 BMI (Body Mass Index) 48.8 kg/m2 Results Description No Information Available Procedures Date Code Description Status 05/10/2019 80158 Short Leg Cast Completed 04/30/2019 77292 Short Leg Cast Completed 04/25/2019 66599 Synovectomy Flexor Tendon Foot Completed 04/25/2019 72267 Synovectomy Flexor Tendon Foot Completed 04/25/2019 13349 Repair Dislocating Peroneal Tendon W/Fibular Osteotomy Completed 04/25/2019 40071 Repair Dislocating Peroneal Tendon W/Fibular Osteotomy Completed 04/25/2019 48211 Repair Flexor Tendon Leg Primary W/O Graft Completed 04/25/2019 72584 Repair Flexor Tendon Leg Primary W/O Graft Completed Medical Devices Description No Information Available Encounters Type Date Location Provider Dx Diagnosis Office Visit 04/15/2019 [facility] Riaz Hernandez, S86.312A Strain musc/tend 8:15a at [facility] peroneal grp at low leg lev, left leg, init Office Visit 04/05/2019 [facility] Riaz Hernandez, M25.572 Pain in left 3:00p at [facility] ankle and joints of left foot M25.472 Effusion, left ankle S93.432A Sprain of tibiofibular ligament of left ankle, init encntr M76.72 Peroneal tendinitis, left leg Office Visit 03/08/2019 [facility], S93.432A Sprain of 10:45a [facility] at tibiofibular [place] ligament of left ankle, init encntr Office Visit 02/19/2019 [facility] Hernandez, S93.432A Sprain of 2:45p [facility] at tibiofibular [place] ligament of left ankle, init encntr M76.72 Peroneal tendinitis, left leg Assessments Date Code Description Provider 05/10/2019 S86.312A Strain of muscle(s) and tendon(s) [...] S86.312A Strain of muscle(s) and tendon(s) of jackelineoneal ROBERT Anderson muscle group at lower leg [...] foot 04/25/2019 M25.372 Other instability, left ankle ROBERT Anderson 04/25/2019 M25.372 Other instability, left ankle Riaz [...] Hernandez MD Plan of Treatment Future Appointment(s):06/14/2019 3:15 pm - Riaz Hernandez MD at [facility] at Okfppm7705/10/2019 - KILLIAN Billings86.312A Strain of muscle(s) and tendon(s) of peroneal muscle group at lower leg level, left leg, initial encounterFollow up:Follow Up: 4 ceeyaL56.872 Other synovitis and tenosynovitis , left ankle and footM25.372 Other instability, left ankle Functional Status Description No Information Available Mental Status Description No Information Available Referrals Description No Information Available
--- OUTSIDE RECORDS SUMMARY | 2019-06-11 16:40 | XMS REPORT | Continuity of Care Document ---
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 Problems Active Problems Provider Date Strain of peroneal tendon Riaz Hernandez MD Onset: 04/15/2019 Peroneal tendinitis, left leg Riaz Hernandez MD Onset: 02/19/2019 Sprain of distal tibiofibular ligament Riaz Hernandez MD Onset: 02/19/2019 Social History Type Date Description Comments Sex [...] Date Location Provider Dx Diagnosis Office Visit 03/08/2019 [facility] Riaz Hernandez, S93.432A Sprain of 10:45a at [place] tibiofibular ligament of left ankle, init encntr Office Visit 02/19/2019 [facility] Riaz Hernandez S93.432A Sprain of 2:45p at [place] tibiofibular ligament of left ankle, init encntr M76.72 Peroneal tendinitis, left leg Assessments Date Code Description Provider 04/15/2019 S86.312A Strain of muscle(s) and tendon(s) of peroneal Riaz Hernandez MD muscle group at lower leg level, left leg, initial encounter 04/05/2019 S93.432A Sprain of tibiofibular ligament of left ankle, Riaz Hernandez MD initial encounter 04/05/2019 M76.72 Peroneal tendinitis, left leg Riaz Hernandez MD 03/08/2019 S93.432A Sprain of tibiofibular ligament of left ankle, Riaz Hernandez MD initial encounter 02/19/2019 S93.432A Sprain of tibiofibular ligament of left ankle, Riaz Hernandez MD initial encounter 02/19/2019 M76.72 Peroneal tendinitis, left leg Riaz Hernandez MD Plan of Treatment 04/15/2019 - Riaz Hernandez MDS86.312A Strain of muscle(s) and tendon(s) of peroneal muscle group at lower leg level, left leg, initial encounterFollow up: Follow Up: deciding on surgery Functional Status Description No Information Available Mental Status Description No Information Available Referrals Description No Information Available
--- OUTSIDE RECORDS SUMMARY | 2019-06-11 16:40 | XMS REPORT | Continuity of Care Document ---
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 Problems Active Problems Provider Date Sprain [...] Location Provider Dx Diagnosis [facility] musc/tend 8:15a at [facility] peroneal grp at low leg lev, left leg, init Office Visit 04/05/2019 [facility] Riaz Hernandez, M25.572 Pain in left 3:00p at [facility] ankle and joints of left foot M25.472 Effusion, left ankle S93.432A Sprain of tibiofibular ligament of left ankle, init encntr M76.72 Peroneal tendinitis, left leg Office Visit 03/08/2019 [facility], S93.432A Sprain of 10:45a [facility] at tibiofibular [place] ligament of left ankle, init encntr Office Visit 02/19/2019 [facility] Riaz Hernandez, S93.432A Sprain of 2:45p [facility] at tibiofibular [place] ligament of left ankle, init encntr M76.72 [...] Appointment(s):04/25/2019 10:00 am - ROBERT Anderson at [facility] at Lajvqk5704/25/2019 10:00 am - Riaz Hernandez MD at [facility] at Fdjvyg4404/15/2019 - Riaz Hernandez MDS86.312A Strain of muscle(s) and tendon(s) of peroneal muscle group at lower leg level, left leg, initial encounterFollow up:Follow Up: 13-15 days postop Functional Status Description No Information Available Mental Status Description No Information Available Referrals Description No Information Available
== END 2019-06-11 09:53 | disposition home or self-care (01) ==
LOC: UCCORT 08:32
DX: S06.0X0A Concussion without loss of consciousness, initial encounter (principal); M25.512 Pain in left shoulder; J45.909 Unspecified asthma, uncomplicated; Z87.891 Personal history of nicotine dependence; Z91.040 Latex allergy status; Z88.5 Allergy status to narcotic agent; Z88.8 Allergy status to other drugs, medicaments and biological substances; Z91.041 Radiographic dye allergy status; W01.198A Fall on same level from slipping, tripping and stumbling with subsequent striking against other object, initial encounter; Y92.89 Other specified places as the place of occurrence of the external cause
CPT/HCPCS: 99211; G0463

== ENCOUNTER 2019-06-19 16:51 | Emergency (ER) | payer BC ==
--- OUTSIDE RECORDS SUMMARY | 2019-06-19 17:14 | XMS REPORT | Continuity of Care Document ---
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 Tobacco Use Start: Unknown End: Patient is a former Unknown smoker Smoking Status Reviewed: 06/19/19 Patient is a former smoker Exercise Type/Frequency Does not exercise Allergies, Adverse Reactions, Alerts Active Allergies Reaction Severity Comments Date Dilaudid Hives 07/21/2016 Latex Hives 07/21/2016 Abilify 06/19/2019 Metoprolol 06/19/2019 Medications Active Medications SIG Qnty Indications Ordering Provider Date Knee Scooter use for S86.312A Riaz Hernandez MD 04/30/2019 non-weightbeari ng ht: 65" wt: 293 Xarelto take one tab 30tabs Riaz Hernandez MD 04/25/2019 10mg Tablets per day Wellbutrin XL 1 by mouth Unknown 300mg every day Tablets ER 24HR History Medications Tramadol HCL 1 tablets every 18taannette Hernandez MD 04/26/2019 - 50mg 4-6 hours as 06/18/2019 Tablets needed Oxycodone HCL 1 tabs by mouth 10taannette Hernandez MD 04/25/2019 - 5mg every 6 hours as 06/18/2019 Tablets needed Medications Administered in Office Medication SIG Qnty Indications Ordering Provider Date Depomedrol 40MG Daniele Hoyos MD 07/21/2016 Injection Immunizations Description No Information Available Vital Signs Date Vital Result Comment 06/19/2019 3:33pm Height 60 inches 5'0" Weight 290.00 lb Heart Rate 66 /min BP Systolic 130 mmHg BP Diastolic 96 mmHg Respiratory Rate 14 /min Body Temperature 98.4 F Pain Level 0 BMI (Body Mass Index) 56.6 kg/m2 05/20/2019 3:12pm Height 65 inches 5'5" Weight 293.00 lb Heart Rate 78 /min BP Systolic 120 mmHg BP Diastolic 82 mmHg Respiratory Rate 17 /min Body Temperature 100.4 F Pain Level 8 BMI (Body Mass Index) 48.8 kg/m2 Results Description No Information Available Procedures Date Code Description Status 05/20/2019 46227 Short Leg Cast Completed 05/10/2019 12821 Short Leg Cast Completed 04/30/2019 66686 Short Leg Cast Completed 04/25/2019 45812 Synovectomy Flexor Tendon Foot Completed 04/25/2019 91912 Synovectomy Flexor Tendon Foot Completed 04/25/2019 42142 Repair Dislocating Peroneal Tendon W/Fibular Osteotomy Completed 04/25/2019 41897 Repair Dislocating Peroneal Tendon W/Fibular Osteotomy Completed 04/25/2019 82857 Repair Flexor Tendon Leg Primary W/O Graft Completed 04/25/2019 84391 Repair Flexor Tendon Leg Primary W/O Graft Completed Medical Devices Description No Information Available Encounters Type Date Location Provider Dx Diagnosis Office Visit 04/15/2019 [place] Amirah Hernandez, S86.312A Strain musc/tend 8:15a at [place] peroneal grp at low leg lev, left leg, init Office Visit 04/05/2019 [place] Amirah Hernandez, M25.572 Pain in left 3:00p at [facility] ankle and joints of left foot M25.472 Effusion, left ankle S93.432A Sprain of tibiofibular ligament of left ankle, init encntr M76.72 Peroneal tendinitis, left leg Office Visit 03/08/2019 [facility] Riaz Hernandez, S93.432A Sprain of 10:45a [facility] at tibiofibular [place] ligament of left ankle, init encntr Office Visit 02/19/2019 [facility] Hernandez, S93.432A Sprain of 2:45p [facility] at tibiofibular [place] ligament of left ankle, init encntr M76.72 Peroneal tendinitis, left leg Assessments Date Code Description Provider 06/19/2019 S86.312A Strain of muscle(s) and tendon(s) of keri Hernandez MD muscle group at lower leg level, left leg, initial encounter 05/20/2019 S86.312A Strain of muscle(s) and tendon(s) of keri Hernandez MD muscle group at lower leg level, left leg, initial encounter 05/20/2019 M65.872 Other synovitis and tenosynovitis, left ankle Riaz Hernandez MD and foot 05/20/2019 M25.372 Other instability, left ankle Riaz Hernandez MD 05/17/2019 Z47.89 Encounter for other orthopedic aftercare Geni Sanabria M.D. 05/17/2019 M25.572 Pain in left ankle and joints of left foot Geni Sanabria M.D. 05/17/2019 R60.0 Localized edema Geni Sanabria M.D. 05/17/2019 M79.662 Pain in left lower leg Geni Sanabria M.D. 05/10/2019 S86.312A Strain of [...] ankle Riaz Hernandez MD and foot 04/25/2019 S86.312A Strain of muscle(s) and tendon(s) of peroneal Bhavani Manriquez RPA-C muscle group at lower leg level, left leg, initial encounter 04/25/2019 S86.312A Strain of muscle(s) and tendon(s) of keri Hernandez MD muscle group at lower leg level, left leg, initial encounter 04/25/2019 M65.872 Other synovitis and tenosynovitis, left ankle Bhavani Mitra, RPA-C and foot 04/25/2019 M65.872 Other synovitis [...] Riaz Hernandez MD Plan of Treatment Future Appointment(s):07/19/2019 8:00 am - Riaz Hernandez MD at [facility] at Dpsyuv2606/19/2019 - Riaz Hernandez, MDS86.312A Strain of muscle(s) and tendon(s) of peroneal muscle group at lower leg level, left leg, initial encounterNew Therapy:Physical TherapyFollow up:Follow Up: 4 weeks Functional Status Description No Information Available Mental Status Description No Information Available Referrals Description No Information Available
[2019-06-19] MEDS ORDERED: NS 0.9% 1000 ML** 1,000 ML IV ONE (17:44)
[2019-06-19] MEDS ORDERED: Ondansetron INJ* 2 MG/ML VIAL IV ONE (17:45)
--- NOTE | 2019-06-19 17:58 | ED ---
Syncope/Near Syncope - HPI Summary HPI Summary: 29 year old female presents with syncope today. She states she is has had 4 episodes of syncope in the past week. She states continues to her head every time she passes out. She was diagnosed with a concussion. States she was using the bathroom today when she got tunnel vision and ended up passing out. States she's had episodes of nausea vomiting. She does have a history of migraines. Has history of SVT and has a loop recorder. She is not on any medications currently. She denies any diarrhea. No bowel pain. She denies any chest pain or shortness of breath. States she feels dizzy right now. She admits to photophobia. Denies any neck pain. No other injury. - History Of Current Complaint Chief Complaint: EDHeadInjury Time Seen by Provider: 06/19/19 17:32 - Allergies/Home Medications Allergies/Adverse Reactions: Allergies Allergy/AdvReac Type Severity Reaction Status Date / Time aripiprazole [From Abilify] Allergy Severe Hives Verified 06/19/19 16:56 hydromorphone Allergy Severe Hives Verified 06/19/19 16:56 latex Allergy Severe Hives Verified 06/19/19 16:56 metoprolol Allergy Severe Hives Verified 06/19/19 16:56 Iodinated Contrast Media AdvReac Severe Vomiting Verified 06/19/19 16:56 PMH/Surg Hx/FS Hx/Imm Hx Endocrine/Hematology History: Reports: Hx Anemia - HX OF Denies: Hx Anticoagulant Therapy, Hx Diabetes, Hx Thyroid Disease Cardiovascular History: Reports: Other Cardiovascular Problems/Disorders - SVT Denies: Hx Hypertension, Hx Pacemaker/ICD Respiratory History: Reports: Hx Asthma Denies: Hx Chronic Obstructive Pulmonary Disease (COPD) GI History: Reports: Hx Gall Bladder Disease, Hx Gastroesophageal Reflux Disease , Hx Hiatal Hernia Denies: Hx Ulcer History: Denies: Hx Renal Disease Musculoskeletal History: Reports: Hx Tendonitis - left ankle Denies: Hx Rheumatoid Arthritis, Hx Osteoporosis, Hx Scoliosis Sensory History: Denies: Hx Contacts or Glasses, Hx Hearing Aid Opthamlomology History: Denies: Hx Contacts or Glasses Neurological History: Reports: Hx Headaches, Hx Migraine Denies: Other Neuro Impairments/Disorders Psychiatric History: Reports: Hx Anxiety, Hx Depression, Hx Panic Disorder - ANXIETY - Cancer History Hx Chemotherapy: No - Surgical History Surgery Procedure, Year, and Place[place] [facility] [place] [facility] [place] ovarian cyst removal. 2 cardiac ablations- 2017, -2017. LOOP RECORDER 12/2017-REVEAL LINQ-PATIENT WILL BRING CARD TO SCAN INTO FILE Hx Anesthesia Reactions: Yes - after ovarian cyst removal BP dropped, T&A and cyst removal= anxious - Immunization History Date of Tetanus Vaccine: utd Date of Influenza Vaccine: none Infectious Disease History: No Infectious Disease History: Denies: Hx Clostridium Difficile, Hx Hepatitis, Hx Human Immunodeficiency Virus (HIV), Hx of Known/Suspected MRSA, Hx Shingles, Hx Tuberculosis, Hx Known/ Suspected VRE, Hx Known/Suspected VRSA, History Other Infectious Disease, Traveled Outside the [place] in Last 30 Days - Family History Known Family History: Positive: Hypertension - Social History Alcohol Use: Occasionally Substance Use Type: Reports: Cocaine, Other Substance Use Comment - Amount & 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 Smoking Status (MU): Former Smoker Type: Cigarettes Amount Used/How Often: 1/2 ppd/day Length of Time of Smoking/Using Tobacco: On and off for 10 yrs. Have You Smoked in the Last Year: Yes Review of Systems Negative: Fever Negative: Chest Pain Negative: Shortness Of Breath Positive: Vomiting, Nausea Positive: Headache All Other Systems Reviewed And Are Negative: Yes Physical Exam Triage Information Reviewed: Yes Vital Signs On Initial Exam: Initial Vitals Temp Pulse Resp BP Pulse Ox 99.1 F 105 18 126/96 98 06/19/19 16:53 06/19/19 16:53 06/19/19 16:53 06/19/19 16:53 06/19/19 16:53 Vital Signs Reviewed: Yes Appearance: Positive: Well-Appearing Skin: Positive: Warm, Dry Head/Face: Positive: Normal Head/Face Inspection Eyes: Positive: Normal, EOMI, RACHEL, Conjunctiva Clear ENT: Positive: Normal ENT inspection, Pharynx normal, TMs normal Respiratory/Lung Sounds: Positive: Clear to Auscultation, Breath Sounds Present Cardiovascular: Positive: Normal, RRR Abdomen Description: Positive: Nontender, Soft Bowel Sounds: Positive: Present Neurological: Positive: Sensory/Motor Intact, Alert, Oriented to Person Place, Time, CN Intact II-III, Finger to Nose Psychiatric: Positive: Normal Procedures - Sedation Patient Received Moderate/Deep Sedation with Procedure: No Diagnostics - Vital Signs Vital Signs Temp Pulse Resp BP Pulse Ox 06/19/19 16:53 99.1 F 105 18 126/96 98 - Laboratory Result Diagrams: 06/19/19 17:59 06/19/19 17:59 Lab Statement: Any lab studies that have been ordered have been reviewed, and results considered in the medical decision making process. - CT brain CT Interpretation Completed By: Radiologist Summary of CT Findings: IMPRESSION: No acute intracranial abnormality. - EKG No standard instances Cardiac Rate: NL EKG Rhythm: Sinus Rhythm EKG Comparison: No Significant Change Summary of EKG Findings: sinus rhythm Re-Evaluation - Re-Evaluation First Eval Re-Evaluation Time: 19:51 Change: Unchanged Comment: still naueous Second Eval Re-Evaluation Time: 20:25 Change: Improved Comment: states is itchy now Third Eval Re-Evaluation Time: 20:59 Change: Improved Comment: itchiness is gone, feels better Course/Dx Course Of Treatment: 29 year old female presents with syncope today. She states she is has had 4 episodes of syncope in the past week. She states continues to her head every time she passes out. She was diagnosed with a concussion. States she was using the bathroom today when she got tunnel vision and ended up passing out. States she's had episodes of nausea vomiting. She does have a history of migraines. Has history of SVT and has a loop recorder. She is not on any medications currently. She denies any diarrhea. No bowel pain. She denies any chest pain or shortness of breath. States she feels dizzy right now. She admits to photophobia. Denies any neck pain. No other injury. On exam of the normal neuro exam. CT of brain normal. lab work wnl. Gave fluids from the Benadryl and Reglan and feeling better. patient becomes significantly tachycardic upon standing so likely has postional tachycardic syndrome. will have follow up with primary and cardiology. gave concussion precautions. told to increase fluid intake. patient understand and agrees with plan. - Diagnoses Differential Diagnosis/HQI/PQRI: Positive: Hypovolemia, Metabolic Reaction, Vasovagal Episode Provider Diagnoses: Concussion, Syncope Discharge ED - Sign-Out/Discharge Documenting (check all that apply): Patient Departure - Discharge Plan Condition: Stable Disposition: HOME Prescriptions: Ondansetron ODT TAB* [Zofran 4 MG Odt TAB*] 4 mg PO Q6H PRN #20 tab.odt PRN Reason: Nausea Patient Education Materials: Syncope (ED), Concussion (ED) Forms: *Work Release Referrals: Jamil Hidalgo MD [Primary Care Provider] - Additional Instructions: Place ice on area as needed Take Tylenol or ibuprofen for headache every 6 hours take zofran every 6 hours for nausea drink plenty of fluids Modify activities as tolerated follow up with cardiology stand up slowly Follow up with primary within 5 days Return to ED if develop any new or worsening symptoms - Billing Disposition and Condition Condition: STABLE Disposition: Home
[2019-06-19 18:06] LABS: ABS Basophils 0.1 10^3/ul (0-0.2); ABS Eosinophils 0.1 10^3/ul (0-0.6); ABS Lymphocytes 1.9 10^3/ul (1.0-4.8); ABS Monocytes 0.5 10^3/ul (0-0.8); ABS Neutrophils 6.8 10^3/ul (1.5-7.7); Eosinophil % 0.9 %; Hematocrit 41 % (35-47); Hemoglobin 13.9 g/dL (12.0-16.0); Lymphocyte % 20.1 %; Mean Corpuscular HGB Conc 34 g/dL (31-36); Mean Corpuscular Hemoglobin 31 pg (27-31); Mean Corpuscular Volume 91 fL (80-97); Mean Platelet Volume 7.6 fL (7.4-10.4); Platelet Count 312 10^3/uL (150-450); Red Blood Count 4.46 10^6 /uL (3.70-4.87); Red Cell Distribution Width 13 % (10-15); White Blood Count 9.3 10^3/uL (3.5-10.8)
[2019-06-19 18:23] LABS: Albumin 3.9 g/dL (3.2-5.2); Albumin/Globulin Ratio 1.1 (1-3); BUN/Creatinine Ratio 11.7 (8-20); EGFR Non-African American 89.3 (>60); Globulin 3.6 g/dL (2-4); Magnesium 1.7 mg/dL (1.9-2.7); Potassium 4.1 mmol/L (3.5-5.0); Total Bilirubin 0.4 mg/dL (0.2-1.0); Total Protein 7.5 g/dL (6.4-8.9)
[2019-06-19 18:50] LABS: TSH (Thyroid Stimulating Horm) 1.88 mcIU/mL (0.34-5.60)
[2019-06-19] MEDS ORDERED: diPHENhydraMINE IV* 50 MG/ML 1 ml VIAL (BENADRYL) SLOW PUSH ONE (19:33)
[2019-06-19] MEDS ORDERED: PROCHLORPERAZINE INJ 5 MG/ML 2 ML VIAL IV ONE (19:33)
[2019-06-19] MEDS ORDERED: Ketorolac INJ* 30 MG/ML 1 ML VIAL IV PUSH ONE (19:45)
[2019-06-19] MEDS ORDERED: O ndansetron ODT 4MG 5TAB PRPK 4 MG PAK PO ONE (21:00)
[2019-06-19 21:18] VITALS: BP 92/47
== END 2019-06-19 21:14 | disposition home or self-care (01) ==
LOC: ED 16:51
DX: S06.0X9A Concussion with loss of consciousness of unspecified duration, initial encounter (principal); R55 Syncope and collapse; Z87.891 Personal history of nicotine dependence; R51 Headache; I47.1 Supraventricular tachycardia; K21.9 Gastro-esophageal reflux disease without esophagitis; R11.2 Nausea with vomiting, unspecified; X58.XXXA Exposure to other specified factors, initial encounter; Y92.9 Unspecified place or not applicable; Z95.818 Presence of other cardiac implants and grafts
CPT/HCPCS: 36415; 70450; 80053; 83605; 83735; 84443; 84484; 85025; 93005; 96361; 96374; 96375; 99283; A9270-GY; J0780; J1200; J1885; J2405

== ENCOUNTER 2019-08-25 07:40 | Emergency (ER) | payer BC ==
--- OUTSIDE RECORDS SUMMARY | 2019-08-25 07:53 | XMS REPORT | Continuity of Care Document ---
:1990 External Reference #:[id number] Author Name Mercedes Boone, FELISHA, HEAD CONTROL CLERK Address [address] [place] [address] Problems Active Problems Provider Date Paroxysmal supraventricular tachycardia Susy Luis ANP Onset: 2015 Social History Type Date Description Comments Sex Unknown Tobacco Use Start: Unknown End: Quit Unknown Smoking Status Reviewed: 07/16/19 Quit ETOH Use Occasionally consumes alcohol Tobacco Use Start: Unknown End: Patient is a former smoker Unknown Recreational Drug Use Denies Drug Use Allergies, Adverse Reactions, Alerts Active Allergies Reaction Severity Comments Date Latex 05/11/2016 Hydromorphone 05/11/2016 Abilify 11/23/2017 Metoprolol Urticaria 03/01/2018 Medications Active Medications SIG Qnty Indications Ordering Provider Date Flecainide Acetate 1 by mouth twice 180tabs I47.1 Mercedes Boone 07/16/2019 a day FELISHA Blakely, 100mg Tablets HEAD CONTROL CLERK Diltiazem HCL ER 1 by mouth every 90caps I47.1 Mercedes Boone 07/16/2019 Coated Beads day FELISHA Blakely, 180mg Caps HEAD CONTROL CLERK ER 24HR Bupropion HCL ER (XL) 1 by mouth every Unknown day 300mg Tablets ER 24HR Ativan 1 tablet by Unknown 0.5mg Tablets mouth every 8 hours prn anxiety Promethazine HCL Take One Tablet Unknown 25mg By Mouth Every 6 Tablets Hours as Needed For Nausea/Vomiting History Medications Cartia XT 1 by mouth 30caps I47.1 Mercedes Boone 06/26/2019 - 120mg Caps every day FELISHA Blakely, HEAD CONTROL CLERK 07/16/2019 ER 24HR Flecainide Acetate 1 by mouth 60tabs I47.1 Mercedes Boone 06/26/2019 - twice a day FELISHA Blakely, HEAD CONTROL CLERK 07/16/2019 50mg Tablets Immunizations Description No Information Available Vital Signs Date Vital Result Comment 08/19/2019 7:51am BP Systolic Sitting Left Arm 138 mmHg BP Diastolic Sitting Left Arm 80 mmHg Respiratory Rate 18 /min Height 65 inches 5'5" Weight 298.00 lb BMI (Body Mass Index) 49.6 kg/m2 BSA (Body Surface Area) 2.34 m2 [place] body weight in kilograms 57 kg 07/16/2019 7:45am BP Systolic Sitting Left Arm 128 mmHg BP Diastolic Sitting Left Arm 86 mmHg Heart Rate 96 /min Respiratory Rate 16 /min Height 65 inches 5'5" Weight 304.00 lb BMI (Body Mass Index) 50.6 kg/m2 BSA (Body Surface Area) 2.36 m2 [place] body weight in kilograms 57 kg O2 % BldC Oximetry 98 % ra Results Test Acquired Date Facility Test Result H/L Range Note Nocturnal Oximetry 08/06/2019 [facility] Low Oximetry 87 % Low 93-98 [address] [place] [address] [phone] Fio2 21 Normal 21-100 Heart Rate 85 BPM Duration Of Study 495 MINUTES Total Time Below 88% 0.1 MINUTES Continuous Oximetry 08/05/2019 [facility] Oximetry 97 % Normal 93-98 [address] [place] [address] [phone] Fio2 21 Normal 21-100 Heart Rate 123 BPM Patient Status RESTING 1 I47.1 SUPRAVENTRICULAR TACHYCARDIA R06.02SOB Procedures Date Code Description Status 08/19/2019 88494 EKG-Tracing And Report Completed 07/05/2019 85808 Echocardiogram Complete Completed 06/26/2019 19920 EKG-Tracing And Report Completed 05/01/2019 81911 Implantable [employer] Heart Rhythm Derived Completed Data Medical Devices Description No Information Available Encounters Type Date Location Provider Dx Diagnosis Office Visit 08/19/2019 Cardiology Office Mercedes Boone I47.1 Supraventricular 7:40a FELISHA Blakely, tachycardia HEAD CONTROL CLERK R55 Syncope and collapse Z95.9 Presence of cardiac and vascular implant and graft, unsp Office Visit 07/16/2019 Cardiology Mercedes Boone I47.1 Supraventricular 7:40a Office Zora, MSN, tachycardia HEAD CONTROL CLERK R55 Syncope and collapse Z95.9 Presence of cardiac and vascular implant and graft, [facility] Office Visit 06/26/2019 7:40a Cardiology Office BooneLua R55 Syncope and [place], MSN, collapse HEAD CONTROL CLERK I47.1 Supraventricular tachycardia Z95.9 Presence of cardiac and vascular implant and graft, [facility] Assessments Date Code Description Provider 08/19/2019 I47.1 Supraventricular tachycardia Boone, Mercedes Blakely, MSN, HEAD CONTROL CLERK 08/19/2019 R55 Syncope and collapse Boone, Mercedes Blakely, MSN, HEAD CONTROL CLERK 08/19/2019 Z95.9 Presence of cardiac and vascular Boone, Mercedes Blakely MSN, implant and graft, unspecified HEAD CONTROL CLERK 07/16/2019 I47.1 Supraventricular tachycardia Boone, Mercedes Blakely MSN, HEAD CONTROL CLERK 07/16/2019 R55 Syncope and collapse Boone, Mercedes Blakely MSN, HEAD CONTROL CLERK 07/16/2019 Z95.9 Presence of cardiac and vascular Boone, Mercedes Blakely, MSN, implant and graft, unspecified HEAD CONTROL CLERK 07/05/2019 R55 Syncope and collapse Miri Hoang MD 07/05/2019 I47.1 Supraventricular tachycardia Miri Hoang MD 06/26/2019 R55 Syncope and collapse Boone, Mercedes Blakely, MSN, HEAD CONTROL CLERK 06/26/2019 I47.1 Paroxysmal supraventricular Boone, Mercedes Blakely MSN, tachycardia HEAD CONTROL CLERK 06/26/2019 Z95.9 Presence of cardiac and vascular Boone, FELISHA Magdaleno, implant and graft, unspecified HEAD CONTROL CLERK 05/01/2019 R55 Syncope and collapse Miri Hoang MD 05/01/2019 R55 Syncope and collapse TTM Check 05/01/2019 Z95.9 Presence of cardiac and vascular Miri Hoang MD implant and graft, unspecified 05/01/2019 Z95.9 Presence of cardiac and vascular TTM Check implant and graft, unspecified 05/01/2019 R42 Dizziness and giddiness Miri Hoang MD 05/01/2019 R42 Dizziness and giddiness TTM Check Plan of Treatment Future Appointment(s):02/18/2020 7:40 am - Mercedes Boone, MSN, HEAD CONTROL CLERK at [facility]/19/2019 - Mercedes Boone, FELISHA, FNPI47.1 Supraventricular tachycardiaComments:No changes. Monitor.R55 Syncope and collapseComments:Monitor.Z95.9 Presence of cardiac and vascular implant and graft, unspecifiedAllFollow up:Follow up visit in six months. Functional Status Description No Information Available Mental Status Description No Information Available Referrals Description No Information Available
--- OUTSIDE RECORDS SUMMARY | 2019-08-25 07:53 | XMS REPORT | Continuity of Care Document ---
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 Onset: 05/17/2019 Social History Type Date Description Comments Sex Unknown Tobacco Use Start: Unknown Light tobacco smoker (10 or fewer cigarettes/day) ETOH Use Denies alcohol use Recreational Drug Use Denies Drug Use but has history of abuse-clean for 3 years Tobacco Use Start: Unknown End: Patient is a former Unknown smoker Smoking Status Reviewed: 07/19/19 Patient is a former smoker Exercise Type/Frequency [...] Unknown 300mg every day Tablets ER 24HR Diltiazem HCL 1 by mouth Unknown 120mg every day Tablets Flecainide Acetate 1 by mouth Unknown 50mg twice a day Tablets History Medications Tramadol HCL 1 tablets every [...] Available Vital Signs Date Vital Result Comment 07/19/2019 8:01am Height 60 inches 5'0" Heart Rate 110 /min BP Systolic 112 mmHg BP Diastolic 60 mmHg Respiratory Rate 20 /min Body Temperature 98.9 F Pain Level 4 06/19/2019 3:33pm Height 60 inches 5'0" Weight 290.00 lb Heart Rate 66 /min BP Systolic 130 mmHg BP Diastolic 96 mmHg Respiratory Rate 14 /min Body Temperature 98.4 F Pain Level 0 BMI (Body Mass Index) 56.6 kg/m2 Results Description No Information Available Procedures Date Code Description Status 05/20/2019 81864 Short Leg Cast Completed 05/10/2019 26127 Short Leg Cast Completed 04/30/2019 02901 Short Leg Cast Completed 04/25/2019 36531 Synovectomy Flexor Tendon Foot Completed 04/25/2019 99810 Synovectomy Flexor Tendon Foot Completed 04/25/2019 33435 Repair Dislocating Peroneal Tendon W/Fibular Osteotomy Completed 04/25/2019 42123 Repair Dislocating Peroneal Tendon W/Fibular Osteotomy Completed 04/25/2019 47851 Repair Flexor Tendon Leg Primary W/O Graft Completed 04/25/2019 04316 Repair Flexor Tendon Leg Primary W/O Graft Completed Medical Devices Description No Information Available Encounters Type Date Location Provider Dx Diagnosis Office Visit 04/15/2019 [facility] Riaz Hernandez, S86.312A Strain musc/tend 8:15a at [facility] peroneal grp at low leg lev, left leg, init Office Visit 04/05/2019 [facility] iRaz Hernandez, M25.572 Pain in left 3:00p at [facility] ankle and joints of left foot M25.472 Effusion, left ankle S93.432A Sprain of tibiofibular ligament of left ankle, init encntr M76.72 Peroneal tendinitis, left leg Office Visit 03/08/2019 Faina Hernandez, S93.432A Sprain of 10:45a Orthopedics at tibiofibular [facility] ligament of left ankle, init encntr Office Visit 02/19/2019 Faina Hernandez, S93.432A Sprain of 2:45p Orthopedics at tibiofibular [facility] ligament of left ankle, init encntr M76.72 Peroneal tendinitis, left leg Assessments Date Code Description Provider 07/19/2019 S86.312D Strain of muscle(s) and tendon(s) of keri Hernandez MD muscle group at lower leg level, left leg, subsequent encounter 07/19/2019 M25.372 Other instability, left ankle Riaz Hernandez MD 07/19/2019 M65.872 Other synovitis and tenosynovitis, left ankle Riaz Hernandez MD and foot 06/19/2019 S86.312D Strain of muscle(s) and tendon(s) of keri Hernandez MD muscle group at lower leg level, left leg, subsequent encounter 05/20/2019 S86.312A Strain of muscle(s) and [...] Sanabria M.D. 05/17/2019 R60.0 Localized edema Geni Daniele, M.D. 05/17/2019 M79.662 Pain in left lower [...] 04/25/2019 M25.372 Other instability, left ankle Bhavani Mitra, RPA-C 04/25/2019 M25.372 Other instability, left ankle [...] Riaz Hernandez MD Plan of Treatment Future Appointment(s):08/20/2019 8:00 am - Riaz Hernandez MD at [facility] at W[facility]w7707/19/2019 - Riaz Hernandez MDS86.312D Strain of muscle(s) and tendon(s) of peroneal muscle group at lower leg level, left leg, subsequent encounterFollow up:Follow Up: 1 dscqiI79.372 Other instability, left zeuecP17.872 Other synovitis and tenosynovitis, left ankle and foot Functional Status Description No Information Available Mental Status Description No Information Available Referrals Description No Information Available
--- OUTSIDE RECORDS SUMMARY | 2019-08-25 07:53 | XMS REPORT | Continuity of Care Document ---
:1990 External Reference #:[id number] Author Name Mercedes Boone, FELISHA, TRANSMISSION BUILDER Address [address] [place] [address] Problems Active Problems Provider Date Paroxysmal supraventricular tachycardia Susy Luis ANP Onset: 2015 Social History Type Date Description Comments Sex Unknown Tobacco Use Start: Unknown End: Unknown Quit Smoking Status Reviewed: 03/01/18 Quit ETOH Use Occasionally consumes alcohol Tobacco Use Start: Unknown End: Unknown Patient is a former smoker Allergies, Adverse Reactions, Alerts Active Allergies Reaction Severity Comments Date Latex 05/11/2016 Hydromorphone 05/11/2016 Abilify 11/23/2017 Metoprolol Urticaria 03/01/2018 Medications Active Medications SIG Qnty Indications Ordering Provider Date Cartia XT 1 by mouth every 30caps I47.1 Mercedes Boone 06/26/2019 120mg Caps ER day FELISHA Blakely, 24HR TRANSMISSION BUILDER Flecainide Acetate 1 by mouth twice 60tabs I47.1 Mercedes Boone 06/26/2019 50mg a day FELISHA Blakely, Tablets TRANSMISSION BUILDER Bupropion HCL ER (XL) 1 by mouth every Unknown day 300mg Tablets ER 24HR Ativan 1 tablet by mouth Unknown 0.5mg Tablets every 8 hours prn anxiety Immunizations Description No Information Available Vital Signs Date Vital Result Comment 06/26/2019 7:55am BP Systolic Sitting Left Arm 132 mmHg BP Diastolic Sitting Left Arm 78 mmHg Heart Rate 116 /min Respiratory Rate 18 /min Height 65 inches 5'5" Weight 294.00 lb BMI (Body Mass Index) 48.9 kg/m2 BSA (Body Surface Area) 2.33 m2 [place] body weight in kilograms 57 kg 03/01/2018 2:12pm BP Systolic Sitting Right Arm 136 mmHg BP Diastolic Sitting Right Arm 84 mmHg Heart Rate 110 /min Respiratory Rate 18 /min Height 65 inches 5'5" Weight 310.00 lb BMI (Body Mass Index) 51.6 kg/m2 BSA (Body Surface Area) 2.38 m2 [place] body weight in kilograms 57 kg O2 % BldC Oximetry 97 % [place] Results Description No Information Available Procedures Date Code Description Status 05/01/2019 43379 Implantable [employer] Heart Rhythm Derived Completed Data 01/14/2019 22079 Implantable [employer] Heart Rhythm Derived Completed Data Medical Devices Description No Information Available Encounters Type Date Location Provider Dx Diagnosis Office Visit 06/26/2019 Cardiology Office Mercedes Boone R55 Syncope and 7:40a FELISHA Blakely, collapse TRANSMISSION BUILDER I47.1 Supraventricular tachycardia Z95.9 Presence of cardiac and vascular implant and graft, unsp Assessments Date Code Description Provider 06/26/2019 R55 Syncope and collapse Mercedes Boone MSN, TRANSMISSION BUILDER 06/26/2019 I47.1 Paroxysmal supraventricular BooneMercedes MSN, tachycardia TRANSMISSION BUILDER 06/26/2019 Z95.9 Presence of cardiac and vascular Mercedes Boone MSN, implant and graft, unspecified TRANSMISSION BUILDER 05/01/2019 R55 Syncope and collapse Miri Hoang MD 05/01/2019 R55 Syncope and collapse TTM Check 05/01/2019 Z95.9 Presence of cardiac and vascular Miri Hoang MD implant and graft, unspecified 05/01/2019 Z95.9 Presence of cardiac and vascular TTM Check implant and graft, unspecified 05/01/2019 R42 Dizziness and giddiness Miri Hoang MD 05/01/2019 R42 Dizziness and giddiness TTM Check 01/14/2019 R55 Syncope and collapse Miri Hoang MD 01/14/2019 R55 Syncope and collapse TTM Check 01/14/2019 Z95.9 Presence of cardiac and vascular Miri Hoang MD implant and graft, unspecified 01/14/2019 Z95.9 Presence of cardiac and vascular TTM Check implant and graft, unspecified Plan of Treatment Future Appointment(s):07/16/2019 7:40 am - Mercedes Boone, MSN, TRANSMISSION BUILDER at [facility]/26/2019 - Mercedes Boone, MSN, [id number] Syncope and collapseNew Orders:Echocardiogram, Ordered: 06/26/19Comments:I will repeat the echo and will see what labs have been done in the last. Meds as below.I47.1 Paroxysmal supraventricular tachycardiaNew Medication:Cartia XT 120 mg - 1 by mouth every dayFlecainide Acetate 50 mg - 1 by mouth twice a dayNew Orders: Echocardiogram, Ordered: 06/26/19Comments:I will try the combination of flecainide and Cartia. She will monitor her symptoms.Z95.9 Presence of cardiac and vascular implant and graft, unspecifiedAllFollow up:After the new year with echo just before.Will release to work on Monday Functional Status Description No Information Available Mental Status Description No Information Available Referrals Description No Information Available
--- OUTSIDE RECORDS SUMMARY | 2019-08-25 07:53 | XMS REPORT | Continuity of Care Document ---
:1990 External Reference #:[id number] Author Name Kd Jc M.D. (transmitted by agent of provider Anju Mendez) Address [address] [place] [address] Care Team Providers Name Role Phone Patient's Choice Care Team Information Office Support Specialist Unavailable Problems Active Problems Provider Date Sprain [...] a former Unknown smoker Smoking Status Reviewed: 08/15/19 Patient is a former smoker Exercise Type/Frequency [...] Available Vital Signs Date Vital Result Comment 08/15/2019 11:05am Height 60 inches 5'0" Heart Rate 107 /min BP Systolic 122 mmHg BP Diastolic 84 mmHg Body Temperature 99.5 F Pain Level 1 07/19/2019 8:01am Height 60 inches 5'0" Heart Rate 110 /min BP Systolic 112 mmHg BP Diastolic 60 mmHg Respiratory Rate 20 /min Body Temperature 98.9 F Pain Level 4 Results Description No Information Available Procedures Date Code Description Status 05/20/2019 66401 Short Leg Cast Completed 05/10/2019 86216 Short Leg Cast Completed 04/30/2019 05170 Short Leg Cast Completed 04/25/2019 05836 Synovectomy Flexor Tendon Foot Completed 04/25/2019 11587 Synovectomy Flexor Tendon Foot Completed 04/25/2019 98230 Repair Dislocating Peroneal Tendon W/Fibular Osteotomy Completed 04/25/2019 05257 Repair Dislocating Peroneal Tendon W/Fibular Osteotomy Completed 04/25/2019 50252 Repair Flexor Tendon Leg Primary W/O Graft Completed 04/25/2019 68769 Repair Flexor Tendon Leg Primary W/O Graft Completed Medical Devices Description No Information Available Encounters Type Date Location Provider Dx Diagnosis Office Visit 04/15/2019 [place] Amirah Hernandez, S86.312A Strain musc/tend 8:15a at [place] peroneal grp at low leg lev, left leg, init Office Visit 04/05/2019 [place] Amirah Hernandez, M25.572 Pain in left 3:00p at [facility] ankle and joints of left foot M25.472 Effusion, left ankle S93.432A Sprain of tibiofibular ligament of left ankle, init encntr M76.72 Peroneal tendinitis, left leg Office Visit 03/08/2019 [place] Riaz Hernandez, S93.432A Sprain of 10:45a Orthopedics at tibiofibular [place] ligament of left ankle, init encntr Office Visit 02/19/2019 [place] Riaz Hernandez, S93.432A Sprain of 2:45p [facility] at tibiofibular [place] ligament of left ankle, init encntr M76.72 Peroneal tendinitis, left leg Assessments Date Code Description Provider 08/15/2019 S86.312D Strain of muscle(s) and tendon(s) of Kd Jc M.D. peroneal muscle group at lower leg level, left leg, subsequent encounter 07/19/2019 S86.312D Strain of muscle(s) and tendon(s) of Riaz Hernandez MD peroneal muscle group at lower leg level, left leg, subsequent encounter 07/19/2019 M25.372 Other instability, left ankle Riaz Hernandez MD 07/19/2019 M65.872 Other synovitis and tenosynovitis, left Riaz Hernandez MD ankle and foot 06/19/2019 S86.312D Strain of muscle(s) and tendon(s) of Riaz Hernandez MD peroneal muscle group at lower leg level, left leg, subsequent encounter 05/20/2019 S86.312A Strain of muscle(s) and tendon(s) of Riaz Hernandez MD peroneal muscle group at lower leg level, left leg, initial encounter 05/20/2019 M65.872 Other synovitis and tenosynovitis, left Riaz Hernandez MD ankle and foot 05/20/2019 M25.372 Other instability, left ankle Riaz Hernandez MD 05/17/2019 Z47.89 Encounter for other orthopedic aftercare Geni Sanabria M.D. 05/17/2019 M25.572 Pain in left ankle and joints of left foot Geni Sanabria M.D. 05/17/2019 R60.0 Localized edema Geni Sanabria M.D. 05/17/2019 M79.662 Pain in left lower leg Geni Sanabria M.D. 05/10/2019 S86.312A Strain of muscle(s) and tendon(s) of Riaz Hernandez MD peroneal muscle group at lower leg level, left leg, initial encounter 05/10/2019 M65.872 Other synovitis and tenosynovitis, left Riza Hernandez MD ankle and foot 05/10/2019 M25.372 Other instability, left ankle Riaz Hernandez MD 04/30/2019 S86.312A Strain of muscle(s) and tendon(s) of Riaz Hernandez MD peroneal muscle group at lower leg level, left leg, initial encounter 04/30/2019 M65.872 Other synovitis and tenosynovitis, left Riaz Hernandez MD ankle and foot 04/25/2019 S86.312A Strain of muscle(s) and tendon(s) of ROBERT Anderson peroneal muscle group at lower leg level, left leg, initial encounter 04/25/2019 S86.312A Strain of muscle(s) and tendon(s) of Riaz Hernandez MD peroneal muscle group at lower leg level, left leg, initial encounter 04/25/2019 M65.872 Other synovitis and tenosynovitis, left ELIANA Anderson ankle and foot 04/25/2019 M65.872 Other synovitis and tenosynovitis, left Riaz Hernandez MD ankle and foot 04/25/2019 M25.372 Other instability, left ankle ROBERT Anderson 04/25/2019 M25.372 Other instability, left ankle Riaz Hernandez MD 04/15/2019 S86.312A Strain of muscle(s) and tendon(s) of Riaz Hernandez MD peroneal muscle group at lower leg level, [...] Hernandez MD at [facility] at [id number]/15/2019 - Kd Jc M.D.S86.312D Strain of muscle( s) and tendon(s) of peroneal muscle group at lower leg level, left leg, subsequent encounterNew Xrays:MRI Ankle Left W/O, Ordered: 08/15/19Follow up: after testing is completed Functional Status Description No Information Available Mental Status Description No Information Available Referrals Description No Information Available
--- OUTSIDE RECORDS SUMMARY | 2019-08-25 07:53 | XMS REPORT | Continuity of Care Document ---
:1990 External Reference #:[id number] Author Name Mercedes Boone, FELISHA, VIDEO GAME SCRIPT WRITER Address [address] [place] [address] Problems Active Problems Provider Date Paroxysmal supraventricular [...] 07/16/2019 a day FELISHA Blakely, 100mg Tablets [employer] WRITER Diltiazem HCL ER 1 by mouth every 90caps I47.1 Mercedes Boone 07/16/2019 Coated Beads day FELISHA Blakely, 180mg Caps [employer] WRITER ER 24HR Bupropion HCL ER (XL) 1 [...] - 120mg Caps every day FELISHA Blakely, VIDEO GAME SCRIPT WRITER 07/16/2019 ER 24HR Flecainide Acetate 1 by mouth 60tabs I47.1 Boone, Mercedes 06/26/2019 - twice a day FELISHA Blakely, VIDEO GAME SCRIPT WRITER 07/16/2019 50mg Tablets Immunizations Description No Information Available Vital Signs Date Vital Result Comment 07/16/2019 7:45am BP Systolic Sitting Left Arm 128 mmHg BP Diastolic Sitting Left Arm 86 mmHg Heart Rate 96 /min Respiratory Rate 16 /min Height 65 inches 5'5" Weight 304.00 lb BMI (Body Mass Index) 50.6 kg/m2 BSA (Body Surface Area) 2.36 m2 [place] body weight in kilograms 57 kg O2 % BldC Oximetry 98 % ra 06/26/2019 7:55am BP Systolic Sitting Left Arm 132 mmHg BP Diastolic Sitting Left Arm 78 mmHg Heart Rate 116 /min Respiratory Rate 18 /min Height 65 inches 5'5" Weight 294.00 lb BMI (Body Mass Index) 48.9 kg/m2 BSA (Body Surface Area) 2.33 m2 [place] body weight in kilograms 57 kg Results Description No Information Available Procedures Date Code Description Status 07/05/2019 21385 Echocardiogram Complete Completed 06/26/2019 78207 EKG-Tracing And Report Completed 05/01/2019 05914 [employer] Heart Rhythm Derived Completed Data 01/14/2019 33982 [employer] 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, unsp Office Visit 06/26/2019 7:40a Cardiology Office Mercedes Boone R55 Syncope and FELISHA Blakely, collapse VIDEO GAME SCRIPT WRITER I47.1 Supraventricular tachycardia Z95.9 Presence of cardiac and vascular implant and graft, unsp Assessments Date Code Description Provider 07/16/2019 I47.1 Supraventricular tachycardia Mercedes Boone MSN, VIDEO GAME SCRIPT WRITER 07/16/2019 R55 Syncope and collapse Mercedes Boone MSN, VIDEO GAME SCRIPT WRITER 07/16/2019 Z95.9 Presence of cardiac and vascular Mercedes Boone MSN, implant and graft, unspecified VIDEO GAME SCRIPT WRITER 07/05/2019 R55 Syncope and collapse Miri Hoang MD 07/05/2019 I47.1 Supraventricular tachycardia Miri Hoang MD 06/26/2019 R55 Syncope and collapse Mercedes Boone MSN, VIDEO GAME SCRIPT WRITER 06/26/2019 I47.1 Paroxysmal supraventricular Boone, FELISHA Magdaleno, tachycardia VIDEO GAME SCRIPT WRITER 06/26/2019 Z95.9 Presence of cardiac and vascular Mercedes Boone MSN, implant and graft, unspecified VIDEO GAME SCRIPT WRITER 05/01/2019 R55 Syncope and collapse Miri Hoang [...] and graft, unspecified Plan of Treatment Future Appointment(s):08/19/2019 7:40 am - Mercedes Boone MSN, VIDEO GAME SCRIPT WRITER at Cardiology [id number]/16/2019 - Mercedes Boone MSN, FNPI47.1 Supraventricular tachycardiaNew Medication:Flecainide Acetate 100 mg - 1 by mouth twice a dayDiltiazem HCL ER Coated Beads 180 mg - 1 by mouth every dayNew Labs:Metanephrines,Fract.24 HR(U), Ordered: 07/16/19Catecholamine,Free,Urine 24HR, Ordered: 07/16/19New Orders:Overnight Oximetry, Scheduled: Comments:I will increase both the flecainide and the Cardizem today. Will assess for pheochromocytosis.R55 Syncope and collapseNew Labs:Catecholamine,Free ,Urine 24HR, Ordered: 07/16/19Z95.9 Presence of cardiac and vascular implant and graft, unspecifiedComments:MonitorAllFollow up:Follow up visit in one month. Functional Status Description No Information Available Mental Status Description No Information Available Referrals Description No Information Available
[2019-08-25 08:00] VITALS: BP 119/77
--- NOTE | 2019-08-25 08:12 | UC ---
FLU HPI - HPI Summary HPI Summary: Patient is a 29yo female presenting with for sore throat and bodyaches that began this morning when she woke up. Notes mild nasal congestion. Denies cough. Denies n/v. Unsure of any fevers. Denies taking anything for symptom relief. Patient states a coworker of hers was recently diagnosed with the flu. - History of Current Complaint Chief Complaint: UCGeneralIllness Stated Complaint: SORE THROAT BODYACHES Hx Obtained From: Patient Hx Last Menstrual Period: 06/10/19 Pain Intensity: 3 Pain Scale Used: 0-10 Numeric - Allergy/Home Medications Allergies/Adverse Reactions: Allergies Allergy/AdvReac Type Severity Reaction Status Date / Time aripiprazole [From [employer]] Allergy Severe Hives Verified 08/25/19 08:00 hydromorphone Allergy Severe Hives Verified 08/25/19 08:00 latex Allergy Severe Hives Verified 08/25/19 08:00 metoprolol Allergy Severe Hives Verified 08/25/19 08:00 Iodinated Contrast Media AdvReac Severe Vomiting Verified 08/25/19 08:00 Home Medications: Home Medications Flecainide TAB* [Tambocor TAB*] 120 mg PO BID 08/25/19 [History Confirmed ] dilTIAZem HCl [Cartia Xt] 180 mg PO DAILY 08/25/19 [History Confirmed 08/25/19] PMH/Surg Hx/FS Hx/Imm Hx Other History Of: Negative For: Anticoagulant Therapy - Surgical History Surgical History: Yes Surgery Procedure, Year, and Place: tonsillectomy 2010 [facility] [place]. right inguinal hernia repair 1995 [facility] [place]. ovarian cyst removal. 2 cardiac ablations- 2016, -2017. LOOP RECORDER 12/2017-REVEAL LINQ-PATIENT WILL BRING CARD TO SCAN INTO FILE. 04/25/2019 LEFT ANKLE TENDON REPAIR - 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 Smoking Status (MU): Former Smoker Type: Cigarettes Amount Used/How Often: 1/2 ppd/day Length of Time of Smoking/Using Tobacco: On and off for 10 yrs. Have You Smoked in the Last Year: Yes When Did the Patient Quit Smoking/Using Tobacco: 12/2018 - Immunization History Most Recent Influenza Vaccination: 2014 Most Recent Tetanus Shot: UPDATED Most Recent Pneumonia Vaccination: NONE Review of Systems All Other Systems Reviewed And Are Negative: Yes Constitutional: Positive: Negative ENT: Positive: Sore Throat, Sinus Congestion Respiratory: Positive: Negative Cardiovascular: Positive: Negative Gastrointestinal: Positive: Negative Musculoskeletal: Positive: Myalgia Neurological/Mental Status: Positive: Negative Physical Exam - Summary Physical Exam Summary: Vital Signs Reviewed: Yes A+Ox3, no distress Eyes: Conjunctiva Caroline ENT: Hearing grossly normal, TM x 2 clear, moist, uvula midline, no exudate, no erythema Neck: Positive: Supple Respiratory: Positive: No respiratory distress, No accessory muscle use + CTA throughout no w/r Cardiovascular: RRR nl s1, s2 no m/r Musculoskeletal Exam: BURROUGHS x 4 without difficulty Neurological: Positive: Alert Psychological: Positive: age appropriate behavior Skin: Positive: no rash, no ecchymosis Vital Signs: Initial Vital Signs Temp 99.5 F 08/25/19 07:55 Pulse 87 08/25/19 07:55 Resp 18 08/25/19 07:55 BP 119/77 08/25/19 07:55 Pulse Ox 99 08/25/19 07:55 Lab Results 08/25/19 Range/Units 08:09 Influenza A (Rapid) Negative (Negative) Influenza B (Rapid) Negative (Negative) Flu Course/Dx - Course Course Of Treatment: Negative rapid flu. Patient declined strep testing. Educated on viral illness and instructed to continue with symptomatic treatment. Instructed to follow up with pcp if symptoms worsen or persist. - Differential Dx/Diagnosis Differential Diagnosis/HQI/PQRI: Influenza, Upper Respiratory Infection, Other - strep pharyngitis Provider Diagnosis: Pharyngitis, Myalgia Discharge ED - Sign-Out/Discharge Documenting (check all that apply): Patient Departure All imaging exams completed and their final reports reviewed: No Studies - Discharge Plan Condition: Stable Disposition: HOME Patient Education Materials: Pharyngitis (ED), Viral Syndrome (ED) Referrals: Jamil Hidalgo MD [Primary Care Provider] - If Needed Additional Instructions: You tested negative for the flu today. Continue with tylenol and/or ibuprofen as directed for fever and pain relief. You may use over the counter throat sprays or lozenges for symptomatic relief. Get plenty of rest and increase your fluid intake. Follow up with your primary care provider if symptoms worsen or do not resolve within 7 days. - Billing Disposition and Condition Condition: STABLE Disposition: Home
[2019-08-25] MEDS ORDERED: Acetaminophen TAB* 325 MG PO ONE (08:17)
[2019-08-25 08:21] LABS: Influenza A Molecular Negative (Negative); Influenza B Molecular Negative (Negative)
== END 2019-08-25 08:32 | disposition home or self-care (01) ==
LOC: UCCORT 07:40
DX: J02.9 Acute pharyngitis, unspecified (principal); M79.10 Myalgia, unspecified site; R09.89 Other specified symptoms and signs involving the circulatory and respiratory systems; Z87.891 Personal history of nicotine dependence; Z91.040 Latex allergy status; Z88.8 Allergy status to other drugs, medicaments and biological substances; Z88.5 Allergy status to narcotic agent; Z91.041 Radiographic dye allergy status
CPT/HCPCS: 99212; A9270-GY; G0463

== ENCOUNTER 2019-10-08 13:43 | Emergency (ER) | payer BC, OTHER ==
--- OUTSIDE RECORDS SUMMARY | 2019-10-08 14:19 | XMS REPORT | Continuity of Care Document ---
:1990 External Reference #:[id number] Author Name Alyson Brooks, GALINA Address [address] [place] [address] Care Team Providers Name Role Phone Kari Escamilla CNP-F - Family Care Team Information Ash Handler [phone] Medicine Jamil Hidalgo MD - Family Care Team Information Ash Handler [phone] Medicine [place] Byrne - Orthopaedic Surgery Care Team Information Ash Handler [phone] Problems Active Problems Provider Date Nondependent mixed drug abuse, episodic Jamil Hidalgo M.D. Onset: 2011 Paroxysmal supraventricular tachycardia Jamil Hidalgo M.D. Onset: 2015 Acute upper respiratory infection, Jamil Hidalgo M.D. Onset: 05/11/2016 unspecified Dysthymic disorder Jamil Hidalgo M.D. Onset: 11/14/2016 Generalized anxiety disorder Jamil Hidalgo M.D. Onset: 11/14/2016 Social History Type Date Description Comments Sex Unknown Tobacco Use Start: Unknown Nonsmoker ETOH Use Denies alcohol use Recreational Drug Use 2012 Former Drug User cocaine, bath salts, opioids, PCP Tobacco Use Start: Unknown Nonsmoker quit 08/15/2017 Smoking Status Reviewed: 10/08/19 Nonsmoker quit 08/15/2017 Allergies, Adverse Reactions, Alerts Active Allergies Reaction Severity Comments Date Dilaudid hives 12/27/2010 Latex 05/11/2016 Abilify sweating/hives 03/22/2017 Metoprolol Tartrate hives 10/26/2018 IV Contrast 06/21/2019 Medications Active Medications SIG Qnty Indications Ordering Provider Date Wellbutrin XL 3 by mouth 90tabs F41.1 Kari Escamilla [facility] 09/12/2019 150mg every day Tablets ER 24HR F34.1 Lorazepam take one or two at at 45tabs F41.1 Kari Escamilla [facility] 09/12/2019 1mg Tablets bedtime as needed for anxiety Note Akanksha was seen by F41.1 Kari Escamilla [facility] 09/12/2019 me today and may not return to work until Monday, Prazosin HCL 1 by mouth every 30caps F41.1 Kari Escamilla [facility] 09/12/2019 2mg Capsules night at bedtime Flecainide Acetate 2x daily Unknown 100mg Tablets History Medications Work Excuse out of work Jamil Dent 09/18/2019 - 09/16/19 to 09/18/19 Eduar Hidalgo 10/08/2019 can return to work 09/19/19 Note For Work Akanksha was seen R55 Kari Escamilla, 06/21/2019 - by al today and may [facility] 09/12/2019 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 04/04/2009 Intramuscular Injection Immunizations CPT Code Status Date Vaccine Lot # [id number] Given 11/20/2015 Tdap Tetanus, W Pertussis [id number] 58969 Given 12/12/2005 Tetanus And Diptheria Adult Preservative Free >7Yrs 26773 Given 10/26/2004 Hepatitis B Immunization, -19 Years 23618 Given 05/10/2004 Hepatitis B Immunization, -19 Years 89344 Given 04/08/2004 Hepatitis B Immunization, -19 Years 26643 Given 11/14/1995 IPV Inactive Poliovirus Vaccine 09535 Given 11/14/1995 MMR Virus Immunization 37466 Given 11/14/1995 DTP Immunization 20834 Given 09/02/1992 DTP Immunization 37672 Given 09/02/1992 MMR Virus Immunization 87170 Given 09/02/1992 IPV Inactive Poliovirus Vaccine 24665 Given 1991 DTP Immunization 43444 Given 1991 IPV Inactive Poliovirus Vaccine 70259 Given 1991 DTP Immunization 69473 Given 1991 Hib PRP-T Conjugate 4 Dose Schedule 23415 Given 1991 IPV Inactive Poliovirus Vaccine 06583 Given 1991 DTP Immunization 71112 Given 1991 Hib PRP-T Conjugate 4 Dose Schedule Vital Signs Date Vital Result Comment 10/08/2019 11:14am BP Systolic 118 mmHg BP Diastolic 82 mmHg Heart Rate 110 /min Body Temperature 98.5 F Respiratory Rate 16 /min 09/12/2019 9:36am BP Systolic 130 mmHg BP Diastolic 72 mmHg Heart Rate 68 /min Body Temperature 98.6 F Respiratory Rate 20 /min Height 64.5 inches 5'4.50" Weight 300.00 lb shoes on BMI (Body Mass Index) 50.7 kg/m2 Results Test Acquired Date Facility Test Result H/L Range Note Laboratory test 10/08/2019 [facility]) Amylase <pending> 20-105 finding Laboratory test 10/08/2019 [facility] Lipase <pending> finding C Reactive Protein <pending> Ua - Micro ([facility]) 10/08/2019 [facility] Appearance <pending> (607)- - Color <pending> Glucose, Urine (Fma/CMC/CTX) <pending> Bilirubin <pending> Ketones <pending> SP Grav <pending> Blood <pending> PH <pending> Protein <pending> Urobil <pending> Nitrite <pending> Leukocytes (a/CMC/Centrex) <pending> Hyaline <pending> /Lpf Granular <pending> /Lpf WBC (a,Centrex) <pending> RBC <pending> Mucus (Fma/CBC/Centrex) <pending> /Lpf Epith <pending> /Lpf Bacteria <pending> /Hpf Amorphous (Fma/CMC/Centrex) <pending> /Lpf Crystals, Fluid (Fma/CMC/CTX) <pending> Z#Comments <pending> CBC Electronic ([facility]) 10/08/2019 [facility] WBC <pending> 4.0- 10.0 (607)- - RBC <pending> 3.93-6.0 Hemoglobin (Fma/CMC/CTX) <pending> g/dL 12.0-17.0 Hematocrit (a/CMC/CTX) <pending> % 35.0-50.0 Mean Corpuscular Vol <pending> fL 80-95 Mean Corpuscular Hemoglobin <pending> pg 25.6-32.2 Mean Corpuscular Hemo Concen <pending> g/dL 32.2-36.0 Platelets <pending> 10^3/ul 163-400 RDW-CV <pending> 11.6-14.4 Mean Platelet Volume <pending> fL 8.0-12.4 Absolute Neutrophils BLD <pending> 1.56-6.13 Absolute Lymphocytes <pending> 1.18-3.74 Absolute Monocytes BLD Auto <pending> 0.24-0.82 Absolute Eos Blood <pending> 0.04-0.54 Absolute Basophils <pending> 0.01-0.08 Neutrophil % <pending> % 34.0-70.0 Lymph% <pending> % 20.0-52.0 Monocytes % <pending> % 5.0-12.0 Eos % <pending> % 0.7-7.0 Basophil% <pending> % 0-1.2 Laboratory test 10/02/2019 [facility] Covid19, PCR Undetected Undetected 1 finding Flu A&B (a) 10/02/2019 [facility] Influenza A negative (607)- - Influenza B negative Rapid Influenza A & B 08/25/2019 [facility] Influenza A Molecular Negative Negative Molecular Influenza B Molecular Negative Negative 2 CBC Auto Diff 06/19/2019 [facility] White Blood Count 9.3 10^3/uL Normal 3.5- 10.8 Red Blood Count 4.46 10^6/uL Normal 3.70-4.87 Hemoglobin 13.9 g/dL Normal 12.0-16.0 Hematocrit 41 % Normal 35-47 Mean Corpuscular Volume 91 fL Normal 80-97 Mean Corpuscular Hemoglobin 31 pg Normal 27-31 Mean Corpuscular HGB Conc 34 g/dL Normal 31-36 Red Cell Distribution Width 13 % Normal 10-15 Platelet Count 312 10^3/uL Normal 150-450 Mean Platelet Volume 7.6 fL Normal 7.4-10.4 Abs Neutrophils 6.8 10^3/uL Normal 1.5-7.7 Abs Lymphocytes 1.9 10^3/uL Normal 1.0-4.8 Abs Monocytes 0.5 10^3/uL Normal 0-0.8 Abs Eosinophils 0.1 10^3/uL Normal 0-0.6 Abs Basophils 0.1 10^3/uL Normal 0-0.2 Abs Nucleated RBC 0.0 10^3/uL Granulocyte % 73.0 % Lymphocyte % 20.1 % Monocyte % 5.0 % Eosinophil % 0.9 % Basophil % 1.0 % Nucleated Red Blood Cells % 0.0 Laboratory test finding 06/19/2019 [facility] Lactic Acid 0.7 mmol/L Normal 0.5- 2.0 3 Comp Metabolic Panel 06/19/2019 [facility] Sodium 137 mmol/L Normal 135-145 Potassium 4.1 mmol/L Normal 3.5-5.0 Chloride 103 mmol/L Normal 101-111 Co2 Carbon Dioxide 28 mmol/L Normal 22-32 Anion Gap 6 mmol/L Normal 2-11 Glucose 91 mg/dL Normal 70-100 Blood Urea Nitrogen 9 mg/dL Normal 6-24 Creatinine 0.77 mg/dL Normal 0.51-0.95 BUN/Creatinine Ratio 11.7 Normal 8-20 Calcium 9.0 mg/dL Normal 8.6-10.3 Total Protein 7.5 g/dL Normal 6.4-8.9 Albumin 3.9 g/dL Normal 3.2-5.2 Globulin 3.6 g/dL Normal 2-4 Albumin/Globulin Ratio 1.1 Normal 1-3 Total Bilirubin 0.40 mg/dL Normal 0.2-1.0 Alkaline Phosphatase 71 U/L Normal 34-104 Alt 26 U/L Normal 7-52 Ast 16 U/L Normal 13-39 Egfr Non- 89.3 >60 Egfr 108.0 >60 4 Laboratory test finding 06/19/2019 [facility] Magnesium 1.7 mg/dL Low 1.9-2.7 Troponin-I (TnI) 0.00 ng/mL <0.03 5 TSH (Thyroid Stim Horm) 1.88 mcIU/mL Normal 0.34-5.60 1 SARS-CoV-2 RNA is not detected. ADDITIONAL INFORMATION Testing was performed using the tequila SARS-CoV-2 assay ([employer] on the tequila 6800 System. Fact sheets for this Emergency Use Authorization (EUA) assay can be found at the following links: For Healthcare Providers: https://www.fda.gov/media/417362/download For Patients: https://www.fda.gov/media/921122/download Test Performed by: [facility] [address] [place] [id number] [address] Sorter: Latrell Negrete M.D. Ph.D.; CLIA# [id number] 2 Brand Marketing Intern: [id number] [address] [facility] Severe Sepsis and Septic Shock Management Bundle Measure requires all lactic acids initially measuring >2.0 mmol/L be repeated. 4 Because ethnic data is not always readily available, this report includes an eGFR for both -Americans and non- Americans. The National Kidney Disease Education Program (NKDEP) does not endorse the use of the MDRD equation for patients that are not between the ages of 18 and 70, are , have extremes of body size, muscle mass, or nutritional status, or are non- or non-. According to the National Kidney Foundation, irrespective of diagnosis, the stage of the disease is based on the level of kidney function: Stage Description GFR(mL/min/1.73 m(2)) 1 Kidney damage with normal or decreased GFR 90 2 Kidney damage with mild decrease in GFR 60-89 3 Moderate decrease in GFR 30-59 4 Severe decrease in GFR 15-29 5 Kidney failure <15 (or dialysis) 5 Troponin-I testing on Plasma Separator Tubes (PST) has a known false positive rate of 0.20-0.40%. All positive troponins reflex immediately to secondary confirmatory testing. Using the [employer] DxI 800 Access Immunoassay systems, the 99th percentile upper reference limit was demonstrated to be < 0.03 ng/mL. Procedures Description No Information Available Medical Devices Description No Information Available Encounters Type Date Location Provider Dx Diagnosis Office Visit 09/12/2019 [facility] LINDA Song F41.1 Generalized anxiety 9:30a disorder F34.1 Dysthymic disorder Office Visit 06/21/2019 2:00p Main Office LINDA Song R55 Syncope and collapse F41.1 Generalized anxiety disorder Assessments Date Code Description Provider 10/08/2019 R50.9 Fever, unspecified Alyson Brooks, STORM SASH MAKER 10/08/2019 R10.31 Right lower quadrant pain Alyson Brooks, GALINA 10/04/2019 R50.9 Fever, unspecified Jamil Hidalgo M.D. 10/02/2019 R50.9 Fever, unspecified Lizz Mo, STORM SASH MAKER 09/12/2019 F41.1 Generalized anxiety disorder Kari Escamilla, PROOFER APPRENTICE 09/12/2019 F34.1 Dysthymic disorder Kari Escamilla, PROOFER APPRENTICE 06/21/2019 R55 Syncope and collapse Kari Escamilla, [facility] 06/21/2019 F41.1 Generalized anxiety disorder LINDA Song Plan of Treatment 10/08/2019 - Alyson Brooks, NPR50.9 Fever, unspecifiedComments:Tylenol ( acetaminophen) 1000mg every 8 hours if fever not below 99.5 - add on ibuprofen Motrin (ibuprofen) 400-600mg every 4-6 hours as needed for pain/fever patient instructed to call back if condition fails to improve or worsens. If you have possible or confirmed COVID-19:1. Stay home from work, school, and away from other public places. If you must go out, avoid using any kind of public transportation, ride sharing, or taxis.2. All close contacts and household members should self-isolate at home3. Monitor your symptoms carefully. If your symptoms get worse, call our office [phone]. Most cases of COVID-19 are mild and can be cared for at home. 4. Get rest and stay hydrated.5. If you have a medical appointment, call the healthcare provider ahead of time and tell them that you have or may have COVID-19.6. For medical emergencies, call 911 and notify the dispatch personnel that you have ormay have COVID-19.7. Cover your cough and sneezes.8. Wash your hands often with soap and water for at least 20 seconds or clean your hands with an alcohol-based hand lightout examiner that contains at least 60% alcohol.9. As much as possible, stay in a specific room and away from other people in your home. Also, you should use a separate bathroom, if available. If you need to be around other people in or outside of the home, wear a face mask.10. Avoid sharing personal items with other people in your household, like dishes, towels, and [id number]. Clean all surfaces that are touched often, like counters, tabletops, and doorknobs. Use household cleaning sprays or wipes according to the label instructions.Please set up your patient portal if you haven't already done so or call the office with questions.R10.31 Right lower quadrant painNew Xrays:CT Abdomen W/O Contrast, Ordered: Comments:The patient was instructed to call if symptoms of abdominal pain worsen. will get hold and call CT to avoid the ED but if the pain spikes, fever spikes, or the CT is positive for appendicitis, we willneed you there. patient instructed to call back if condition fails to improve or worsens. bland diet tylenolfollow up tomorrow in office if we are unable to get CT and/ or you aren't worse.AllComments:Medication Management Patient Understands medications he 's taking? Yes No Are there Barriers to Adherence? Yes No Has the patient been asked about herbal supplements and therapies, andOTC meds? Yes No Care Plan1. Patient has been queried about patient's goals/preferences and functional/lifestyle goals at relevant visits. If relevant, describe: na2. Treatment goals as explained to the patient: above3. Are there barriers to meeting treatment goals? Yes No If Yes, please describe: environmental and occupational exposure, disease process, polypharmacy 4. Self-Management goals as described to the patient: Yes NoAs always, we strongly encourage a healthy diet and making physical activity a part of your every day life. If you have questions about how orwhere to start , please contact the office. Functional Status Description No Information Available Mental Status Description No Information Available Referrals Description No Information Available
--- NOTE | 2019-10-08 15:07 | ED ---
Abdominal Pain/Female - HPI Summary HPI Summary: The patient is a 29 year-old female presenting to [facility] with a chief complaint of RLQ pain onset at 10:00 this morning. She reports that she had eaten breakfast at 07:30 and was asymptomatic at that point. Around 10:00, she developed a constant stabbing pain in the RLQ. She visited her PCP who recommended she came to the ED to rule out appendicitis. In the ED, the patient endorses mild nausea. She has eaten pretzels between breakfast and now and states a normal appetite. She denies any fevers, vomiting, constipation, diarrhea, or urinary symptoms. The 01/16 pain has not changed since onset, and it does not radiate. There are no reported aggravating or alleviating factors. LNMP was two weeks ago. She states she could be as she is somewhat actively trying to conceive with her . She notes history of multiple miscarriages. She still has her appendix and gallbladder. Past medical history includes SVT with implanted loop recorder and Flecainide compliance, asthma, GERD, anxiety, right inguinal hernia repair, ovarian cystectomy. Former smoker, occasional alcohol use, history of polysubstance abuse but none now. Medications reviewed. Allergies noted. - History of Current Complaint Chief Complaint: EDAbdPain Stated Complaint: ABDOMINAL PAIN Time Seen by Provider: 10/08/19 14:54 Hx Obtained From: Patient Hx Last Menstrual Period: 06/10/19 Onset/Duration: Sudden Onset, Still Present Timing: Constant Severity Initially: Moderate Severity Currently: Moderate Pain Intensity: 7 Pain Scale Used: 0-10 Numeric Location: Discrete At: RLQ Radiates: No Character: Other: - stabbing Aggravating Factor(s): Nothing Alleviating Factor(s): Nothing Associated Signs and Symptoms: Positive: Nausea. Negative: Fever, Constipation , Urinary Symptoms, Decreased Appetite, Vomiting, Diarrhea Allergies/Adverse Reactions: Allergies Allergy/AdvReac Type Severity Reaction Status Date / Time aripiprazole [From Abilify] Allergy Severe Hives Verified 10/08/19 13:50 hydromorphone Allergy Severe Hives Verified 10/08/19 13:50 latex Allergy Severe Hives Verified 10/08/19 13:50 metoprolol Allergy Severe Hives Verified 10/08/19 13:50 Iodinated Contrast Media AdvReac Severe Vomiting Verified 10/08/19 13:50 Home Medications: Home Medications Bupropion XL (NF) [Wellbutrin XL 300 MG (NF)] 400 mg PO DAILY 08/18/17 [History Confirmed 10/08/19] Flecainide TAB* [Tambocor TAB*] 120 mg PO BID 08/25/19 [History Confirmed ] dilTIAZem HCl [Cartia Xt] 180 mg PO DAILY 08/25/19 [History Confirmed 10/08/19] Acetaminophen TAB* [Tylenol TAB*] 325 mg PO Q4H PRN 10/08/19 [History Confirmed 10/08/19] Prazosin 1 mg CAP [Minipress 1 mg CAP] 1 mg PO BEDTIME 10/08/19 [History Confirmed 10/08/19] PMH/Surg Hx/FS Hx/Imm Hx Endocrine/Hematology History: Reports: Hx Anemia - HX OF Denies: Hx Anticoagulant Therapy, Hx Diabetes, Hx Thyroid Disease Cardiovascular History: Reports: Other Cardiovascular Problems/Disorders - SVT, implanted loop recorder Denies: Hx Hypertension, Hx Pacemaker/ICD Respiratory History: Reports: Hx Asthma Denies: Hx Chronic Obstructive Pulmonary Disease (COPD) GI History: Reports: Hx Gall Bladder Disease, Hx Gastroesophageal Reflux Disease , Hx Hiatal Hernia Denies: Hx Ulcer History: Denies: Hx Dialysis, Hx Renal Disease Musculoskeletal History: Reports: Hx Tendonitis - left ankle Denies: Hx Rheumatoid Arthritis, Hx Osteoporosis, Hx Scoliosis Sensory History: Denies: Hx Contacts or Glasses, Hx Hearing Aid Opthamlomology History: Denies: Hx Contacts or Glasses Neurological History: Reports: Hx Headaches, Hx Migraine Denies: Other Neuro Impairments/Disorders Psychiatric History: Reports: Hx Anxiety, Hx Depression, Hx Panic Disorder - ANXIETY - Cancer History Hx Chemotherapy: No - Surgical History Surgical History: Yes Surgery Procedure, Year, and Place: tonsillectomy 2010 [facility] [place]. right inguinal hernia repair 1995 [facility] [place]. ovarian cyst removal. 2 cardiac ablations- 2016, -2017. LOOP RECORDER 12/2017-REVEAL LINQ-PATIENT WILL BRING CARD TO SCAN INTO FILE. 04/25/2019 LEFT ANKLE TENDON REPAIR - [facility] Hx Anesthesia Reactions: Yes - after ovarian cyst removal BP dropped, T&A and cyst removal= anxious - Immunization History Date of Tetanus Vaccine: utd Date of Influenza Vaccine: none Infectious Disease History: No Infectious Disease History: Denies: Hx Clostridium Difficile, Hx Hepatitis, Hx Human Immunodeficiency Virus (HIV), Hx of Known/Suspected MRSA, Hx Shingles, Hx Tuberculosis, Hx Known/ Suspected VRE, Hx Known/Suspected VRSA, History Other Infectious Disease, Traveled Outside the [place] in Last 30 Days - Family History Known Family History: Positive: Hypertension - Social History Alcohol Use: Occasionally Hx Substance Use: Yes Substance Use Type: Reports: None Substance Use Comment - Amount & 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 Hx Tobacco Use: Yes Smoking Status (MU): Former Smoker Type: Cigarettes Amount Used/How Often: 1/2 ppd/day Length of Time of Smoking/Using Tobacco: On and off for 10 yrs. Have You Smoked in the Last Year: Yes Review of Systems Negative: Fever Positive: Abdominal Pain - RLQ, Nausea. Negative: Vomiting, Other - change in appetite Positive: no symptoms reported All Other Systems Reviewed And Are Negative: Yes Physical Exam - Summary Physical Exam Summary: Appearance: The patient is well-nourished in no acute distress and in no acute pain. The patient is morbidly obese. Skin: The skin is warm and dry, and skin color reflects adequate perfusion. HEENT: The head is normocephalic and atraumatic. The pupils are equal and reactive. The conjunctivae are clear and without drainage. Nares are patent and without drainage. Mouth reveals moist mucous membranes, and the throat is without erythema and exudate. The external ears are intact. The ear canals are patent and without drainage. The tympanic membranes are intact. Neck: The neck is supple with full range of motion and non-tender. There are no carotid bruits. There is no neck vein distension. Respiratory: Chest is non-tender. Lungs are clear to auscultation and breath sounds are symmetrical and equal. Cardiovascular: Heart is regular rate and rhythm. There is no murmur or rub auscultated. There is no peripheral edema and pulses are symmetrical and equal. Abdomen: The abdomen is soft with mild tenderness in the right lower and upper quadrants. There is no rebound or guarding. There are normal bowel sounds heard in all four quadrants and there is no organomegaly palpated. Musculoskeletal: There is no back tenderness noted. Extremities are non-tender with full range of motion. There is good capillary refill. There is no peripheral edema or calf tenderness elicited. Neurological: Patient is alert and oriented to person, place and time. The patient has symmetrical motor strength in all four extremities. Cranial nerves are grossly intact. Deep tendon reflexes are symmetrical and equal in all four extremities. Psychiatric: The patient has an appropriate affect and does not exhibit any anxiety or depression. Triage Information Reviewed: Yes Vital Signs On Initial Exam: Initial Vitals Temp Pulse Resp BP Pulse Ox 99.0 F 109 18 163/98 100 10/08/19 13:49 10/08/19 13:49 10/08/19 13:49 10/08/19 13:49 10/08/19 13:49 Vital Signs Reviewed: Yes Procedures - Sedation Patient Received Moderate/Deep Sedation with Procedure: No Diagnostics - Vital Signs Vital Signs Temp Pulse Resp BP Pulse Ox 10/08/19 13:49 99.0 F 109 18 163/98 100 - Laboratory Result Diagrams: 10/08/19 15:16 10/08/19 15:16 Lab Statement: Any lab studies that have been ordered have been reviewed, and results considered in the medical decision making process. - Ultrasound Abdominal US Ultrasound Interpretation Completed By: Radiologist Summary of Ultrasound Findings: Impression: Appendix not visualized. This imaging report was reviewed by Dr. Mcclain. Transvaginal US Ultrasound Interpretation Completed By: Radiologist Summary of Ultrasound Findings: Impression: Unremarkable pelvic ultrasound. This imaging report was reviewed by Dr. Mcclain. Re-Evaluation - Re-Evaluation First Eval Re-Evaluation Time: 18:30 Comment: I discussed all results with the patient and plan for discharge home. Abdominal Pain Fem Course/Dx - Course Course Of Treatment: Ms. Joseph presented with an atypical abdominal pain and mild tenderness in the right lower quadrant. She also had very mild tenderness in the right upper quadrant. She had no leukocytosis or other abnormality in her labs. Ultrasound showed no sign of appendicitis or obvious ovarian pathology. I recommended discharge with observation and follow-up as needed. - Diagnoses Provider Diagnoses: Abdominal pain Discharge ED - Sign-Out/Discharge Documenting (check all that apply): Patient Departure - Patient will be discharged home. - Discharge Plan Condition: Stable Disposition: HOME Patient Education Materials: Abdominal Pain (ED) Referrals: Jamil Hidalgo MD [Primary Care Provider] - 3 Days Additional Instructions: Follow up with your primary care provider in 2-3 days. Return to the emergency department for any new or worsening symptoms. - Billing Disposition and Condition Condition: STABLE Disposition: Home - Attestation Statements Document Initiated by Sundeep: Yes Documenting Scribe: Rosio Wilson Provider For Whom Sundeep is Documenting (Include Credential): Catracho Mcclain MD Scribe Attestation: Rosio Hardwick, scribed for Catracho Mcclain MD on 10/08/19 at 2050. Scribe Documentation Reviewed: Yes Provider Attestation: The documentation as recorded by the Rosio huerta accurately reflects the service I personally performed and the decisions made by me, Catracho Mcclain MD Status of Scribe Document: Viewed
[2019-10-08 15:32] LABS: ABS Basophils 0.1 10^3/ul (0-0.2); ABS Eosinophils 0.1 10^3/ul (0-0.6); ABS Lymphocytes 1.8 10^3/ul (1.0-4.8); ABS Monocytes 0.5 10^3/ul (0-0.8); ABS Neutrophils 5.7 10^3/ul (1.5-7.7); Hematocrit 40 % (35-47); Hemoglobin 13.8 g/dL (12.0-16.0); Lymphocyte % 22.2 %; Mean Corpuscular HGB Conc 35 g/dL (31-36); Mean Corpuscular Hemoglobin 31 pg (27-31); Mean Corpuscular Volume 90 fL (80-97); Mean Platelet Volume 7.8 fL (7.4-10.4); Nucleated Red Blood Cells % 0.1; Platelet Count 334 10^3/uL (150-450); Red Blood Count 4.45 10^6 /uL (3.70-4.87); Red Cell Distribution Width 13 % (10-15); White Blood Count 8.3 10^3/uL (3.5-10.8)
[2019-10-08 15:50] LABS: ALT 17 U/L (7-52); AST 12 U/L (13-39); Albumin/Globulin Ratio 1.1 (1-3); Alkaline Phosphatase 100 U/L (34-104); Anion Gap 8 mmol/L (2-11); BUN/Creatinine Ratio 12.2 (8-20); Blood Urea Nitrogen 11 mg/dL (6-24); C Reactive Protein 7.38 mg/L (<8.01); CO2 Carbon Dioxide 25 mmol/L (22-32); Calcium 9.4 mg/dL (8.6-10.3); Chloride 102 mmol/L (101-111); EGFR African American 90.2 (>60); EGFR Non-African American 74.6 (>60); Globulin 3.6 g/dL (2-4); Glucose 95 mg/dL (70-100); Potassium 3.8 mmol/L (3.5-5.0); Sodium 135 mmol/L (135-145); Total Protein 7.6 g/dL (6.4-8.9)
[2019-10-08 15:53] LABS: HCG Pregnancy < 0.60 mIU/mL
[2019-10-08 16:12] LABS: Urine Appearance Clear; Urine Bilirubin Negative (Negative); Urine Blood Negative (Negative); Urine Color Yellow; Urine Glucose Negative (Negative); Urine Ketones Negative (Negative); Urine Nitrite Negative (Negative); Urine Protein Negative (Negative); Urine Specific Gravity 1.008 (1.010-1.030); Urine Urobilinogen Negative (Negative)
[2019-10-08 18:48] VITALS: BP 134/100
== END 2019-10-08 18:47 | disposition home or self-care (01) ==
LOC: ED 13:43
DX: R10.31 Right lower quadrant pain (principal); F41.9 Anxiety disorder, unspecified; F32.9 Major depressive disorder, single episode, unspecified; K21.9 Gastro-esophageal reflux disease without esophagitis; J45.909 Unspecified asthma, uncomplicated; Z87.891 Personal history of nicotine dependence; Z79.899 Other long term (current) drug therapy; Z88.8 Allergy status to other drugs, medicaments and biological substances; Z95.810 Presence of automatic (implantable) cardiac defibrillator
CPT/HCPCS: 36415; 76705; 76830; 80053; 81003; 83605; 84702; 85025; 86140; 99282

== ENCOUNTER 2024-06-23 20:16 | Inpatient (IN) ==
[2024-06-23] MEDS ORDERED: Etomidate 40 mg/20 ml (2 MG/ML) 20 ml VIAL (40 mg) ONE (20:27)
[2024-06-23] MEDS ORDERED: Rocuronium 50 mg VIAL 10 mg/ml 5 ml VIAL (50 mg) ONE (20:27)
[2024-06-23] MEDS: Rocuronium 50 mg VIAL 10 mg/ml 5 ml VIAL (50 mg) IV ONE (20:35)
[2024-06-23] MEDS: Etomidate 20 mg/10 ml 2 MG/ML 10 ml VIAL IV ONE (20:35)
[2024-06-23] MEDS: HYDROmorphone 1 MG/1 ML SYRINGE IV ONE (20:40)
[2024-06-23] MEDS: fentaNYL 100 mcg/2 ml 50 MCG/ML VIAL IV SLOW PU ONE ×2 (20:50→22:24)
[2024-06-23 20:52] LABS: ABS Basophils 0.1 10^3/uL (0.0-0.1); ABS Eosinophils 0.2 10^3/uL (0.0-0.5); ABS Lymphocytes 2.6 10^3/uL (1.0-4.8); ABS Monocytes 0.5 10^3/uL (0.0-0.9); ABS Neutrophils 3.7 10^3/uL (1.5-7.6); Eosinophil % 2.3 %; Hematocrit 38.9 % (35-45); Hemoglobin 13.5 g/dL (11.5-14.3); Lymphocyte % 36.7 %; Mean Corpuscular Hgb Conc 34.8 g/dL (31-36); Mean Corpuscular Volume 94.8 fL (80-97); Mean Platelet Volume 7.6 fL (7.5-11.2); Platelet Count 290 10^3/uL (150-450); Red Cell Distribution Width 12.7 % (12-17); White Blood Count 7.1 10^3/uL (3.8-11.8)
[2024-06-23] MEDS: Propofol 10 mg/ml 100 ML BTL 1,000 MG/100 ML BTL IV SCH (20:59)
[2024-06-23] MEDS: Charcoal ACTIVATED 25 GM/120 ML BTL PO ONE (21:05)
[2024-06-23 21:24] LABS: Venous Bicarbonate HCO3 21.8 mmol/L (24-28)
[2024-06-23] MEDS: Lactated Ringers 1000 ml BAG 1,000 ML IV ONE (21:40)
[2024-06-23 21:56] LABS: Urine Appearance Clear; Urine Bilirubin Negative (Negative); Urine Blood Negative (Negative); Urine Color Colorless; Urine Glucose Negative (Negative); Urine Ketones Negative (Negative); Urine Nitrite Negative (Negative); Urine Protein Negative (Negative); Urine Specific Gravity 1.004 (1.002-1.030); Urine Urobilinogen Negative (Negative)
[2024-06-23 22:05] LABS: ALT 17 U/L (7-52); AST 17 U/L (13-39); Acetaminophen < 15 mcg/mL; Albumin 4.4 g/dL (3.2-5.2); Albumin/Globulin Ratio 1.4 (1-3); Alcohol, S 177 mg/dL (<13); Alkaline Phosphatase 61 U/L (35-149); Anion Gap 8 mmol/L (2-16); Blood Urea Nitrogen 10 mg/dL (6-24); CO2 Carbon Dioxide 24 mmol/L (22-32); Calcium 9.4 mg/dL (8.6-10.3); Chloride 105 mmol/L (101-111); Creatinine, Serum 0.87 mg/dL (0.51-0.95); Globulin 3.2 g/dL (2-4); Glucose 87 mg/dL (70-100); Potassium 3.7 mmol/L (3.5-5.0); Salicylate < 2.50 mg/dL (<30); Sodium 137 mmol/L (135-145); Total Bilirubin 0.3 mg/dL (0.2-1.0); Total Protein 7.6 g/dL (6.4-8.9); eGFR CKD-EPI 90.2 (>60)
[2024-06-23] MEDS ORDERED: fentaNYL 100 mcg/2 ml 50 MCG/ML VIAL ONE (22:21)
[2024-06-23] MEDS: Midazolam 5 mg/5 ml VIAL 1 mg/ml 5 ml VIAL (5 mg) IV SLOW PU ONE ×2 (22:36→23:03)
[2024-06-23 22:38] LABS: Urine Benzodiazepine Screen Presumptive Positive (None Detect); Urine Cannabinoids Screen None Detected (None Detect); Urine Opiates Screen None Detected (None Detect)
[2024-06-23 22:55] LABS: HCG Pregnancy < 0.60 mIU/mL
[2024-06-24] MEDS: Midazolam PREMIXBAG 1 MG/ML NS 100 ML IV SCH (00:13)
[2024-06-24] MEDS ORDERED: Propofol 10 mg/ml 100 ML BTL 1,000 MG/100 ML BTL ONE (00:15)
[2024-06-24 02:35] LABS: C Reactive Protein 3.12 mg/L (<8.01)
[2024-06-24] MEDS: cefTRIAXone 1 gm/50 mL D5W 1 GM/50 ML BAG IV SCH (03:35)
[2024-06-24] MEDS: Pantoprazole VIAL 40 MG VIAL IV SCH (03:35)
[2024-06-24] MEDS: Chlorhexidine MOUTHWASH 0.12% 15 ML UDC SWISH SPIT SCH (03:35)
[2024-06-24] MEDS: DOXYcycline 100 MG in NS 0.9% 250 ml 250 ML IVPB SCH (04:48)
[2024-06-24 05:29] LABS: ABS Basophils 0.1 10^3/uL (0.0-0.1); ABS Eosinophils 0.1 10^3/uL (0.0-0.5); ABS Lymphocytes 1.1 10^3/uL (1.0-4.8); ABS Monocytes 0.6 10^3/uL (0.0-0.9); ABS Neutrophils 4.2 10^3/uL (1.5-7.6); ABS Nucleated RBC 0.01 10^3/ul; Hematocrit 37.7 % (35-45); Hemoglobin 12.9 g/dL (11.5-14.3); Lymphocyte % 19.2 %; Mean Corpuscular Hemoglobin 32.5 pg (27-33); Mean Corpuscular Hgb Conc 34.2 g/dL (31-36); Mean Corpuscular Volume 95.2 fL (80-97); Mean Platelet Volume 7.3 fL (7.5-11.2); Nucleated Red Blood Cells % 0.1 %/100WBC (0.0-0.8); Platelet Count 300 10^3/uL (150-450); Red Blood Count 3.97 10^6/uL (3.63-4.92)
[2024-06-24 06:13] LABS: Albumin 3.8 g/dL (3.2-5.2); Albumin/Globulin Ratio 1.3 (1-3); Calcium 8.5 mg/dL (8.6-10.3); Creatinine, Serum 0.84 mg/dL (0.51-0.95); Magnesium 1.9 mg/dL (1.9-2.7); Phosphorus 2.5 mg/dL (2.5-5.0); Potassium 4.2 mmol/L (3.5-5.0); Total Bilirubin 0.4 mg/dL (0.2-1.0); Total Protein 6.8 g/dL (6.4-8.9)
[2024-06-24] MEDS: fentaNYL 100 mcg/2 ml 50 MCG/ML VIAL IV SLOW PU ONE (07:45)
[2024-06-24] MEDS: Midazolam 5 mg/5 ml VIAL 1 mg/ml 5 ml VIAL (5 mg) IV SLOW PU PRN (07:58)
[2024-06-24] MEDS: LORazepam 2 mg VIAL 1 ml IV PUSH ONE (08:10)
[2024-06-24] MEDS ORDERED: LORazepam 2 MG/ML 1 mL Syringe IV ONE (08:12)
[2024-06-24] MEDS: fentaNYL 100 mcg/2 ml 50 MCG/ML VIAL ONE (08:20)
[2024-06-24] MEDS: LORazepam 2 mg VIAL 1 ml ONE (08:20)
[2024-06-24] MEDS: Midazolam 5 mg/5 ml VIAL 1 mg/ml 5 ml VIAL (5 mg) IV SLOW PU ONE (08:21)
[2024-06-24] MEDS ORDERED: fentaNYL INFUSION 50 mcg/mL VL 2,500 MCG/50 ML VIAL IV SCH (09:00)
[2024-06-24] MEDS: Midazolam 5 mg/5 ml VIAL 1 mg/ml 5 ml VIAL (5 mg) ONE (10:36)
[2024-06-24] MEDS: Midazolam 10 mg/10 ml VIAL 1 mg/ml 10 ml VIAL (10 mg) IV SLOW PU ONE (10:36)
[2024-06-24] MEDS: Acetaminophen IV 1 GM/100ML 1,000 MG/100 ML BAG IV PRN (15:12)
[2024-06-24] MEDS: Folic Acid IV 1 MG in NS 0.9% 50 ML 50 ML IV ONE (17:06)
[2024-06-24] MEDS: Thiamine 100 MG/ML 2 ml VIAL 250 MG in NS 0.9% 100 ml BAG 100 ML IV SCH (17:46)
[2024-06-24] MEDS: Propofol 10 mg/ml 100 ML BTL 1,000 MG/100 ML BTL IV SCH (20:07)
[2024-06-24] MEDS: fentaNYL 100 mcg/2 ml 50 MCG/ML VIAL IV SLOW PU PRN (20:26)
[2024-06-24] MEDS: Enoxaparin 40 MG/0.4 ML SYR SUBCUT SCH (23:53)
[2024-06-25 06:22] LABS: ABS Basophils 0.1 10^3/uL (0.0-0.1); ABS Eosinophils 0.1 10^3/uL (0.0-0.5); ABS Lymphocytes 1.7 10^3/uL (1.0-4.8); ABS Nucleated RBC 0.01 10^3/ul; Eosinophil % 1.3 %; Hemoglobin 12.6 g/dL (11.5-14.3); Lymphocyte % 17.3 %; Mean Corpuscular Hgb Conc 35.8 g/dL (31-36); Mean Corpuscular Volume 94.9 fL (80-97); Mean Platelet Volume 7.9 fL (7.5-11.2); Nucleated Red Blood Cells % 0.1 %/100WBC (0.0-0.8); Platelet Count 223 10^3/uL (150-450); Red Blood Count 3.69 10^6/uL (3.63-4.92); Red Cell Distribution Width 12.8 % (12-17)
[2024-06-25 07:01] LABS: ALT 16 U/L (7-52); Albumin 3.5 g/dL (3.2-5.2); Albumin/Globulin Ratio 1.3 (1-3); Alkaline Phosphatase 60 U/L (35-149); Anion Gap 8 mmol/L (2-16); Blood Urea Nitrogen 12 mg/dL (6-24); CO2 Carbon Dioxide 23 mmol/L (22-32); Chloride 107 mmol/L (101-111); Globulin 2.8 g/dL (2-4); Glucose 96 mg/dL (70-100); Magnesium 1.7 mg/dL (1.9-2.7); Sodium 138 mmol/L (135-145); Total Bilirubin 0.5 mg/dL (0.2-1.0); Total Protein 6.3 g/dL (6.4-8.9); eGFR CKD-EPI 99.7 (>60)
[2024-06-25 08:14] LABS: Potassium Redraw 3.5 mmol/L (3.5-5.0)
[2024-06-25] MEDS: Acetaminophen IV 1 GM/100ML 1,000 MG/100 ML BAG IV PRN (11:51)
[2024-06-26 05:26] LABS: ABS Basophils 0.1 10^3/uL (0.0-0.1); ABS Eosinophils 0.2 10^3/uL (0.0-0.5); ABS Lymphocytes 1.4 10^3/uL (1.0-4.8); ABS Monocytes 0.5 10^3/uL (0.0-0.9); Eosinophil % 3.6 %; Hematocrit 33.2 % (35-45); Hemoglobin 11.6 g/dL (11.5-14.3); Lymphocyte % 23.1 %; Mean Corpuscular Hemoglobin 33.2 pg (27-33); Mean Corpuscular Volume 94.9 fL (80-97); Mean Platelet Volume 7.7 fL (7.5-11.2); Platelet Count 199 10^3/uL (150-450); Red Cell Distribution Width 12.7 % (12-17); White Blood Count 6.2 10^3/uL (3.8-11.8)
[2024-06-26 06:03] LABS: Anion Gap 5 mmol/L (2-16); Blood Urea Nitrogen 12 mg/dL (6-24); CO2 Carbon Dioxide 25 mmol/L (22-32); Calcium 7.8 mg/dL (8.6-10.3); Chloride 108 mmol/L (101-111); Creatinine, Serum 0.75 mg/dL (0.51-0.95); Glucose 81 mg/dL (70-100); Magnesium 1.9 mg/dL (1.9-2.7); Sodium 138 mmol/L (135-145); eGFR CKD-EPI 107.7 (>60)
[2024-06-26] MEDS: Lactated Ringers 1000 ml BAG 1,000 ML IV ONE (11:49)
[2024-06-27 06:27] LABS: ABS Eosinophils 0.2 10^3/uL (0.0-0.5); ABS Lymphocytes 1.2 10^3/uL (1.0-4.8); ABS Monocytes 0.5 10^3/uL (0.0-0.9); ABS Neutrophils 4.2 10^3/uL (1.5-7.6); ABS Nucleated RBC 0.01 10^3/ul; Eosinophil % 2.9 %; Hematocrit 32.5 % (35-45); Hemoglobin 11.4 g/dL (11.5-14.3); Lymphocyte % 19.1 %; Mean Corpuscular Hemoglobin 33.2 pg (27-33); Mean Corpuscular Hgb Conc 35.1 g/dL (31-36); Mean Corpuscular Volume 94.6 fL (80-97); Mean Platelet Volume 7.6 fL (7.5-11.2); Nucleated Red Blood Cells % 0.1 %/100WBC (0.0-0.8); Platelet Count 208 10^3/uL (150-450); Red Blood Count 3.43 10^6/uL (3.63-4.92); Red Cell Distribution Width 12.3 % (12-17); White Blood Count 6.1 10^3/uL (3.8-11.8)
[2024-06-27 06:59] LABS: Calcium 8.1 mg/dL (8.6-10.3); Creatinine, Serum 0.72 mg/dL (0.51-0.95); Magnesium 1.8 mg/dL (1.9-2.7); Potassium 3.6 mmol/L (3.5-5.0); eGFR CKD-EPI 113.1 (>60)
[2024-06-27] MEDS: KCL 20 MEQ/100 ML IVPREMIX 20 MEQ/100 ML BAG IV SCH (08:21)
[2024-06-27] MEDS: Magnesium Sulfate 2 gm BAG 2 GM/50 ML BAG IVPB ONE (08:21)
[2024-06-27 13:09] LABS: Urine Appearance Turbid; Urine Bilirubin Negative (Negative); Urine Blood 3+ (Negative); Urine Glucose Negative (Negative); Urine Ketones 4+ (Negative); Urine Nitrite Negative (Negative); Urine Protein 1+ (>=30 mg/dL) (Negative); Urine Specific Gravity 1.028 (1.002-1.030); Urine Urobilinogen Negative (Negative); Urine pH 5.5 (5.0-8.0)
[2024-06-27 13:51] LABS: Urine Color Light-Brown
[2024-06-27 13:52] LABS: Urine Red Blood Cell 3+(>10/hpf) /HPF (0-Trace); Urine Squamous Epithelial Cell Present /HPF (Absent)
[2024-06-27 13:53] LABS: Urine Bacteria 1+ /HPF (Absent)
[2024-06-27 14:13] VITALS: BP 124/72
== END 2024-06-27 18:04 | DRG 917 ==
LOC: ED 20:16 → EDHOLD 23:19 → ICU 06-24 00:08 → MEDTELE 06-24 01:05
PROVIDERS: ADMIT Student in an Organized Health Care Education/Training Program; ATTEND Internal Medicine

== ENCOUNTER 2024-06-27 18:06 | Inpatient (IN) ==
[2024-06-27] MEDS ORDERED: Al Hydrox/Mg Hydrox/Simet LIQ 30 ML UDC PO PRN (19:53)
[2024-06-27] MEDS: Benzocaine/Menthol LOZ PO PRN (19:58)
[2024-06-27] MEDS: IVABRADINE 5 MG PO SCH (21:12)
[2024-06-28] MEDS: Aspirin EC 81 mg TAB.EC (enteric coated) PO SCH (09:12)
[2024-06-28] MEDS: Vitamin THERAPEUTIC TAB PO SCH (09:13)
[2024-06-30 11:24] VITALS: BP 141/89
[2024-07-01 08:03] LABS: HDL Cholesterol 24.9 mg/dL
== END 2024-07-01 14:20 | disposition home or self-care (01) | DRG 885 ==
LOC: BSU 18:06
PROVIDERS: ADMIT Psychiatry & Neurology Psychiatry; ATTEND Psychiatry & Neurology Psychiatry